=== PATIENT | male | born 1965 | race Hispanic/Latino ===

== ENCOUNTER 2018-05-01 21:35 | Emergency (ER) | payer SELFPAY ==
[2018-05-01 22:29] LABS: #Eosinphils 0.1 thou/uL (0.0-0.7); #Lymphocytes 2.5 thou/uL (1.20-3.40); #Monocytes 0.8 thou/uL (0.11-0.59); #Neutrophils 3.1 thou/uL (1.40-6.50); %Basophils 0.2 % (0.0-1.0); %Eosinophils 1.6 % (0.0-10.0); %Lymphocytes 38.1 % (21.0-51.0); Hemoglobin 14.8 g/dL (14.0-18.0); Mean Corpuscular HGB CONC 34.1 g/dL (32.0-36.0); Mean Corpuscular Volume 82.1 fL (78.0-98.0); Mean Platelet Volume 8.2 fL (7.4-10.4); Platelet Count 203 thou/uL (130-400); Red Blood Cell (RBC) Count 5.27 mill/uL (4.70-6.10); White Blood Cell (WBC) Count 6.4 thou/uL (4.8-10.8)
[2018-05-01 22:51] LABS: ALT (SGPT) 27 U/L (8-55); AST (SGOT) 22 U/L (5-34); Albumin 4.4 g/dL (3.5-5.0); Alkaline Phosphatase 138 U/L (40-150); Anion Gap 10 mmol/L (10-20); BUN (Urea Nitrogen) 13 mg/dL (8.4-25.7); Calc. Creatinine Clearance 0 mL/min (70-130); Calcium 9.4 mg/dL (7.8-10.44); Carbon Dioxide 26 mmol/L (22-29); Chloride 107 mmol/L (98-107); Estimated GFR-MDRD 70; Globulin 3.3 g/dL (2.4-3.5); Glucose 148 mg/dL (70-105); Potassium 3.9 mmol/L (3.5-5.1); Protein, Total 7.7 g/dL (6.0-8.3); Sodium 139 mmol/L (136-145)
--- NOTE | 2018-05-01 22:52 | RAD ---
FRONTAL RADIOGRAPH CHEST: 05/01/2018 HISTORY: Headache. Sweaty. COMPARISON: 10/09/2016 FINDINGS: The lungs are clear. The heart and mediastinal contour is unremarkable. IMPRESSION: No acute findings. POS: [facility]
[2018-05-01] MEDS ORDERED: Acetaminophen 500 MG TAB ONE (23:47)
[2018-05-02] MEDS ORDERED: Ketorolac Tromethamine 30 MG/ML VIAL ONE (00:40)
[2018-05-02 02:08] LABS: Bilirubin Negative (Negative); Blood, Urine Negative (Negative); Clarity CLEAR (Clear); Glucose, Urine (Dipstick) 250 mg/dL (Negative); Leukocyte Negative (Negative); Nitrite Negative (Negative); Protein, Urine (Dipstick) Negative (Neg-Trace); Specific Gravity, Urine 1.021 (1.002-1.036)
--- NOTE | 2018-05-02 07:38 | CT ---
CT HEAD NONCONTRAST: Date: 05/02/18 INDICATION: Headache. COMPARISON: 08/02/14. FINDINGS: There is no evidence of acute intracranial hemorrhage, mass effect, or midline shift. Redemonstration of white matter hypoattenuation involving each cerebral hemisphere, most consistent with advanced fo r age microvascular ischemic disease. There is a lacunar infarction involving the right cerebellar he misphere. There is also a lacunar infarction involving the anterior aspect of the head of the right c audate nucleus. There is scattered paranasal sinus mucosal thickening. IMPRESSION: 1. There is no acute intracranial hemorrhage or mass effect. 2. Lacunar infarctions superimposed upon advanced for age microvascular ischemic disease. Consider b rain MRI for further evaluation. POS: [facility]
== END 2018-05-02 03:16 | disposition home or self-care (01) ==
LOC: ERS 21:35
DX: R51 Headache (principal); R07.89 Other chest pain; E11.9 Type 2 diabetes mellitus without complications; I10 Essential (primary) hypertension; Z79.84 Long term (current) use of oral hypoglycemic drugs; Z79.899 Other long term (current) drug therapy
CPT/HCPCS: 36415; 70450; 71045; 80053; 81003; 84484; 85025; 93005; 96372; J1885

== ENCOUNTER 2018-05-29 16:38 | Emergency (ER) | payer SELFPAY ==
[2018-05-29] MEDS ORDERED: Acetaminophen 500 MG TAB ONE (16:55)
--- NOTE | 2018-05-29 17:13 | RAD ---
EXAM: CHEST ONE VIEW HISTORY: Weakness COMPARISON: 05/01/2018 FINDINGS: Cardiac silhouette is magnified by kyphotic positioning of the patient and shallow inspiration. Pulmo nary vasculature is within normal limits. The lungs are clear. The osseous structures are intact. IMPRESSION: No acute cardiopulmonary process.
[2018-05-29 17:15] LABS: Hemoglobin 15.7 g/dL (14.0-18.0); Mean Corpuscular HGB CONC 33.6 g/dL (32.0-36.0); Mean Corpuscular Hemoglobin 27.4 pg (27.0-31.0); Mean Corpuscular Volume 81.6 fL (78.0-98.0); Mean Platelet Volume 8.2 fL (7.4-10.4); Platelet Count 188 thou/uL (130-400); RBC Distribution Width 11.8 % (11.5-14.5); Red Blood Cell (RBC) Count 5.71 mill/uL (4.70-6.10); White Blood Cell (WBC) Count 6.6 thou/uL (4.8-10.8)
[2018-05-29 17:25] LABS: Bilirubin Negative (Negative); Blood, Urine Negative (Negative); Clarity CLEAR (Clear); Glucose, Urine (Dipstick) >=1000 mg/dL (Negative); Leukocyte Negative (Negative); Nitrite Negative (Negative); Protein, Urine (Dipstick) 30 mg/dL (Neg-Trace); Specific Gravity, Urine 1.026 (1.002-1.036); Urobilinogen 0.2 mg/dL (0.2-1.0)
[2018-05-29 17:28] LABS: Bacteria/HPF None Seen HPF (None Seen); Hyaline Casts/LPF 0-3 HYALINE CAST LPF (0-3 Hyaline); Pathc Cast-AUWi Flag 0.27 (0-2.49); RBC/HPF 0-3 HPF (0-3); Squamous Epithelial None Seen HPF (0-3); WBC/HPF None Seen HPF (0-3)
[2018-05-29 17:31] LABS: ALT (SGPT) 27 U/L (8-55); AST (SGOT) 21 U/L (5-34); Albumin 4.7 g/dL (3.5-5.0); Alkaline Phosphatase 166 U/L (40-150); Anion Gap 11 mmol/L (10-20); BUN (Urea Nitrogen) 13 mg/dL (8.4-25.7); Bilirubin, Total 1.5 mg/dL (0.2-1.2); Calc. Creatinine Clearance 0 mL/min (70-130); Calcium 9.8 mg/dL (7.8-10.44); Carbon Dioxide 29 mmol/L (22-29); Chloride 101 mmol/L (98-107); Estimated GFR-MDRD 58; Globulin 3.4 g/dL (2.4-3.5); Glucose 254 mg/dL (70-105); Potassium 4.2 mmol/L (3.5-5.1); Protein, Total 8.1 g/dL (6.0-8.3); Sodium 137 mmol/L (136-145)
[2018-05-29 17:43] LABS: Lymphocytes 24 % (21-51); MDiff Complete? YES; Monocytes 14 % (0-10); Neutrophil 57 % (42-75); Platelet Morphology Comment Appears Adequate; RBC Morphology Normal; Reactive Lymphocytes 5 % (0-10)
--- NOTE | 2018-05-29 18:40 | ULT ---
RIGHT UPPER QUADRANT ULTRASOUND: 05/29/18 HISTORY: Right upper quadrant abdominal pain for three days. FINDINGS: The pancreas is completely obscured by shadowing from bowel gas and unable to be evaluated. The left lobe of the liver is also obscured due to shadowing from bowel gas and unable to be evaluate d. Portions of the right hepatic lobe are also not well seen but where visualized demonstrate a gross ly normal sonographic appearance. The gallbladder demonstrates no gallbladder calculi. No gallbladder wall thickening or pericholecysti c fluid is seen. The visualized portions of the IVC and right kidney demonstrate a normal sonographic appearance. The right kidney measures 11.7 cm in length. The common duct measures 0.6 cm in diameter which is at the upper limits of normal. IMPRESSION: 1. No gallbladder calculi are seen. The common duct is at the upper limits of normal in caliber. 2. Obscuration of the pancreas and left hepatic lobe as well as limited evaluation of the right hepatic lobe, but no focal hepatic lesion is appreciated in the right hepatic lobe. POS: [facility]
== END 2018-05-29 19:37 | disposition home or self-care (01) ==
LOC: ERS 16:38
DX: B34.9 Viral infection, unspecified (principal); E11.9 Type 2 diabetes mellitus without complications; I10 Essential (primary) hypertension; Z79.899 Other long term (current) drug therapy
CPT/HCPCS: 36415; 71045; 76705; 80053; 81003; 81015; 83605; 85025; 87040; 87086; 87804; 93005; 96360

== ENCOUNTER 2018-09-26 22:50 | Emergency (ER) | payer OTHER ==
[2018-09-26] MEDS ORDERED: Clindamycin/D5W 900 mg/50 ml Premix Bag ONE (23:21)
[2018-09-26 23:23] LABS: #Eosinphils 0.1 thou/uL (0.0-0.7); #Lymphocytes 2.3 thou/uL (1.20-3.40); #Monocytes 0.8 thou/uL (0.11-0.59); #Neutrophils 3.6 thou/uL (1.40-6.50); %Basophils 0.2 % (0.0-1.0); %Eosinophils 1.4 % (0.0-10.0); %Lymphocytes 33.7 % (21.0-51.0); %Monocytes 12.2 % (0.0-10.0); %Neutrophils 52.5 % (42.0-75.0); Hemoglobin 13.6 g/dL (14.0-18.0); Mean Corpuscular HGB CONC 34.3 g/dL (32.0-36.0); Mean Corpuscular Hemoglobin 28.3 pg (27.0-31.0); Mean Corpuscular Volume 82.4 fL (78.0-98.0); Mean Platelet Volume 8.3 fL (7.4-10.4); Platelet Count 207 thou/uL (130-400); RBC Distribution Width 11.6 % (11.5-14.5); White Blood Cell (WBC) Count 6.9 thou/uL (4.8-10.8)
[2018-09-26 23:47] LABS: ALT (SGPT) 21 U/L (8-55); AST (SGOT) 19 U/L (5-34); Albumin 4.3 g/dL (3.5-5.0); Alkaline Phosphatase 113 U/L (40-150); Anion Gap 13 mmol/L (10-20); BUN (Urea Nitrogen) 21 mg/dL (8.4-25.7); Bilirubin, Total 0.6 mg/dL (0.2-1.2); Calc. Creatinine Clearance 0 mL/min (70-130); Calcium 9.4 mg/dL (7.8-10.44); Carbon Dioxide 25 mmol/L (22-29); Chloride 105 mmol/L (98-107); Estimated GFR-MDRD 63; Glucose 125 mg/dL (70-105); Potassium 3.8 mmol/L (3.5-5.1); Protein, Total 7.3 g/dL (6.0-8.3); Sodium 139 mmol/L (136-145)
== END 2018-09-27 00:25 | disposition home or self-care (01) ==
LOC: ERS 22:50
DX: S80.812A Abrasion, left lower leg, initial encounter (principal); L03.116 Cellulitis of left lower limb; E11.9 Type 2 diabetes mellitus without complications; I10 Essential (primary) hypertension; Z86.73 Personal history of transient ischemic attack (TIA), and cerebral infarction without residual deficits; Z79.84 Long term (current) use of oral hypoglycemic drugs; Z79.899 Other long term (current) drug therapy; W22.8XXA Striking against or struck by other objects, initial encounter
CPT/HCPCS: 80053; 83605; 85025; 87070; 87205; 96365; J3490

== ENCOUNTER 2018-11-14 22:50 | Observation (INO) | payer OTHER ==
[2018-11-15] MEDS ORDERED: Morphine 4 MG/ML VIAL ONE (00:36)
[2018-11-15 01:18] LABS: #Eosinphils 0.3 thou/uL (0.0-0.7); #Lymphocytes 2.3 thou/uL (1.20-3.40); #Monocytes 0.8 thou/uL (0.11-0.59); #Neutrophils 3.1 thou/uL (1.40-6.50); %Basophils 0.4 % (0.0-1.0); %Eosinophils 3.9 % (0.0-10.0); %Monocytes 12.1 % (0.0-10.0); %Neutrophils 48.5 % (42.0-75.0); Hemoglobin 14.3 g/dL (14.0-18.0); Mean Corpuscular HGB CONC 34.8 g/dL (32.0-36.0); Mean Corpuscular Hemoglobin 28.8 pg (27.0-31.0); Mean Corpuscular Volume 82.6 fL (78.0-98.0); Mean Platelet Volume 8.4 fL (7.4-10.4); Platelet Count 181 thou/uL (130-400); RBC Distribution Width 12.1 % (11.5-14.5); Red Blood Cell (RBC) Count 4.97 mill/uL (4.70-6.10); White Blood Cell (WBC) Count 6.4 thou/uL (4.8-10.8)
[2018-11-15 01:39] LABS: ALT (SGPT) 28 U/L (8-55); AST (SGOT) 23 U/L (5-34); Albumin 4.3 g/dL (3.5-5.0); Alkaline Phosphatase 125 U/L (40-110); Anion Gap 12 mmol/L (10-20); BUN (Urea Nitrogen) 19 mg/dL (8.4-25.7); Bilirubin, Total 0.5 mg/dL (0.2-1.2); Calc. Creatinine Clearance 0 mL/min (70-130); Calcium 9.4 mg/dL (7.8-10.44); Carbon Dioxide 26 mmol/L (22-29); Chloride 104 mmol/L (98-107); Estimated GFR-MDRD 72; Globulin 3.1 g/dL (2.4-3.5); Glucose 149 mg/dL (70-105); Lipase 62 U/L (8-78); Potassium 3.6 mmol/L (3.5-5.1); Protein, Total 7.4 g/dL (6.0-8.3); Sodium 138 mmol/L (136-145)
[2018-11-15] MEDS ORDERED: Aspirin Chewable 81 MG TAB ONE (02:06)
[2018-11-15 06:24] LABS: Troponin I 0.028 ng/mL (< 0.028)
[2018-11-15 08:03] LABS: Troponin I 0.037 ng/mL (< 0.028)
--- NOTE | 2018-11-15 08:49 | RAD ---
RADIOGRAPH CHEST 1 VIEW: HISTORY: A 53-year-old male with dyspnea. FINDINGS: There are no air space densities, pulmonary edema, pneumothorax, or cardiomegaly. The lateral costop hrenic angles are sharp. IMPRESSION: No acute cardiopulmonary findings. jn [] POS: [facility]
--- NOTE | 2018-11-15 08:54 | RAD ---
RADIOGRAPH LEFT LEG TIBIA AND FIBULA TWO VIEWS: 11/15/2018 HISTORY: A 53-year-old male with leg pain. FINDINGS: No evidence of fracture, periostitis, permeative lesion, osteolytic lesion or osteoblastic lesion inv olving the tibia or the fibula. No soft tissue calcifications or radiopaque foreign body. IMPRESSION: Negative. POS: [facility]
[2018-11-15] MEDS ORDERED: Ondansetron ODT 4 MG TAB PO PRN (10:00)
[2018-11-15] MEDS ORDERED: Acetaminophen 650 MG Suppository PR PRN (10:00)
[2018-11-15] MEDS ORDERED: Ondansetron PF 4 MG/2 ML Vial IVP PRN (10:00)
[2018-11-15] MEDS ORDERED: HumaLOG 300 UNITS/3 ML VIAL SC PRN (10:03)
[2018-11-15] MEDS ORDERED: Dextrose 50% Abboject 50 ML SYRINGE SLOW IVP PRN (10:03)
[2018-11-15] MEDS ORDERED: Dextrose 5% in Water 1,000 ML IV PRN (10:03)
[2018-11-15] MEDS ORDERED: Lisinopril 20 MG TAB PO SCH (10:15)
[2018-11-15] MEDS ORDERED: Lisinopril 10 MG TAB ONE ×2 (10:29→10:30)
[2018-11-15] MEDS ORDERED: Acetaminophen 325 MG/10.15 ML UDCUP ONE (10:31)
[2018-11-15] MEDS ORDERED: Acetaminophen 325 MG TAB ONE ×2 (10:31→10:32)
[2018-11-15] MEDS: Dextrose 5 %-0.45 % NaCl 1,000 ML IV SCH (11:21)
[2018-11-15] MEDS: Acetaminophen 325 MG TAB PO PRN ×2 (11:22→20:05)
--- NOTE | 2018-11-15 11:41 | ULT ---
VENOUS DOPPLER ULTRASOUND OF THE LEFT LOWER EXTREMITY: Date: 11/15/18 HISTORY: Left leg pain and edema. TECHNIQUE: Kebede scale ultrasound with color flow and spectral Doppler imaging of the deep venous system of the l eft lower extremity was performed. FINDINGS: There is good flow, compression, and augmentation noted in the left common femoral, femoral, deep fem oral, popliteal, posterior tibial, and greater saphenous veins. IMPRESSION: No evidence of deep venous thrombosis in the left lower extremity. POS: [facility]
[2018-11-15 11:58] LABS: Lactic Acid 0.8 mmol/L (0.5-2.2)
[2018-11-15 12:39] VITALS: BMI 42.0
[2018-11-15] MEDS ORDERED: Clindamycin 150 MG CAP PO SCH (18:30)
--- NOTE | 2018-11-15 19:39 | HP ---
TIME OF ASSESSMENT: 10:00 a.m. PRIMARY CARE PHYSICIAN: Dr. Patel. HISTORY OF PRESENT ILLNESS: Mr. Cai is a pleasant 53-year-old gentleman who presents with complaints of chest pain and shortness of breath as well as left lower extremity discomfort following an injury while at work approximately 2 weeks ago. The patient sustained blunt trauma and states he developed swelling. He was seen by his primary care physician who placed him on a course of antibiotics recently due to concern for possible cellulitis given the pain and redness. He states that the swelling and redness improved. However, he continues to have discomfort, which tends to be noticeable at night once he goes to bed. He takes [id number] analgesics to help ease the discomfort so that he can sleep. Yesterday, the patient states he began to develop left-sided chest pain and has also noted shortness of breath with exertion such as walking to his car. Denies having any cough. No associated fevers or chills. No dizziness. Denies having any other complaints. The chest pain he states started yesterday around 5:00 p.m., described as a pressure, which he rates 5/10 in severity and states lasted a few seconds to 4 minutes. Has been intermittent yesterday and he denies experiencing any further pain this morning. It does seem to be brought on with exertion along with the shortness of breath. He reports having a stress test over a year ago which was normal. It appears this was on November 22, 2015 per previous records available. At that time, there was no evidence of ischemia. He had a TID ratio of 1.2 and a slightly decreased ejection fraction of 49%. He did have an echocardiogram done at that time, which showed a normal left ventricular systolic function with mild mitral regurgitation and mild tricuspid regurgitation with an EF of 50% to 55%. In the emergency department, the patient has undergone laboratory studies including a D-dimer, which was negative. A chest x-ray was done showing no acute cardiopulmonary findings. An x-ray was obtained of the left lower extremity, which showed no abnormality. He has been referred for further workup regarding his chest pain and was given 324 mg of aspirin. An EKG was done in the ER, which showed normal sinus rhythm with no ST changes or T-wave abnormalities. Of note, the patient states he did mention the shortness of breath to his primary care physician who started him on albuterol inhaler. He denies any history of asthma or chronic obstructive pulmonary disease. He has never smoked and has not noted any improvement with the inhaler. PAST MEDICAL HISTORY: 1. Diabetes. 2. Hypertension. 3. Previous TIA with mild right-sided paresthesias. PAST SURGICAL HISTORY: Appendectomy. SOCIAL HISTORY: The patient lives alone. He denies any alcohol consumption, smoking, or illicit drug use. ALLERGIES: NO KNOWN DRUG ALLERGIES. CURRENT MEDICATIONS: 1. Metformin. 2. Glipizide. 3. Carvedilol. 4. Prozac. 5. Amlodipine. 6. Mupirocin. 7. Humulin 50/50. PHYSICAL EXAMINATION: GENERAL: The patient appears well developed, well nourished, is in no acute distress. VITAL SIGNS: Temperature 97.6, pulse 69, respirations 20, O2 saturation 99% on room air, and blood pressure 166/87. HEENT: Normocephalic and atraumatic. Pupils are equal, round, and reactive to light. Sclerae icterus. Oropharynx is clear. NECK: Supple without lymphadenopathy. LUNGS: Clear to auscultation bilaterally without wheezes, rales, or rhonchi. CARDIAC: Regular rate and rhythm without audible murmurs, rubs, or gallops. ABDOMEN: Soft, nontender, nondistended. Normoactive bowel sounds present. EXTREMITIES: Left lower extremity notable for dry skin with scaling, small area on the anterior lower juarez of slight erythema, slight warmth that is tender to palpation. No fluctuation or bone deformity. NEUROLOGIC: Alert and oriented x3. No new deficits. SKIN: As mentioned, warm and dry. LABORATORY STUDIES: White blood count 6.4, hemoglobin 14.3, hematocrit 41, platelets 181. D-dimer 0.33. Sodium 138, potassium 3.6, BUN 19, creatinine 1.07, GFR 72, glucose 149, calcium 9.4. LFTs unremarkable. Troponin 0.024, second troponin was 0.037, lipase 62. IMAGING STUDIES: As mentioned above in HPI. IMPRESSION AND PLAN: Mr. Cai is a very pleasant 53-year-old gentleman who is being referred for management of the following. 1. Chest pain with shortness of breath. We will continue to trend troponins. If no further increase or improved troponin, the patient will likely able to have a stress test done without having to be seen by Cardiology first. BNP will be added on as well as magnesium. The patient with slightly reduced EF on echo done in 2016. Repeat echo ordered. D-dimer was negative. However, given trauma to the left lower extremity with pain, though it is anteriorly rather than calf, we will obtain a venous Doppler. 2. Left lower extremity pain. There is some very slight erythema and very minimal warmth to touch. We will add procalcitonin and lactic acid to labs. White count is normal and he is afebrile. Was treated recently with antibiotics for possible skin infection. We will go ahead and start Omnicef. 3. Hypertension. We will resume home medications once verified and monitor blood pressure. 4. Diabetes mellitus. We will hold home medications and cover with insulin sliding scale. We will monitor glucose. 5. Gastrointestinal prophylaxis with famotidine. 6. Code status full. His surrogate decision maker is his sister, Marilyn Dash. The patient's case was discussed with Dr. Aguila, who agrees with plan of care as described above. Job ID: [id number] [facility]ITALSatish
[2018-11-15] MEDS: PROVENTIL INHALER 6.7 G (200 INHALATIONS) INH SCH (19:53)
[2018-11-15] MEDS: Cefdinir 300 MG CAP PO SCH (20:05)
[2018-11-15] MEDS: Carvedilol 6.25 MG TAB PO SCH (20:05)
[2018-11-15] MEDS: Famotidine 20 MG TAB PO SCH (20:05)
[2018-11-15] MEDS ORDERED: Famotidine/PF 20 mg/2ml Vial SLOW IVP SCH (21:00)
[2018-11-16] MEDS: Dextrose 5 %-0.45 % NaCl 1,000 ML IV SCH (04:23)
[2018-11-16 04:28] LABS: #Eosinphils 0.3 thou/uL (0.0-0.7); #Lymphocytes 1.6 thou/uL (1.20-3.40); #Monocytes 0.5 thou/uL (0.11-0.59); #Neutrophils 3.4 thou/uL (1.40-6.50); %Eosinophils 4.6 % (0.0-10.0); %Lymphocytes 28.1 % (21.0-51.0); %Monocytes 8.5 % (0.0-10.0); %Neutrophils 58.8 % (42.0-75.0); Hemoglobin 14.3 g/dL (14.0-18.0); Mean Corpuscular HGB CONC 34.2 g/dL (32.0-36.0); Mean Corpuscular Hemoglobin 28.3 pg (27.0-31.0); Mean Corpuscular Volume 82.6 fL (78.0-98.0); Platelet Count 179 thou/uL (130-400); Red Blood Cell (RBC) Count 5.05 mill/uL (4.70-6.10); White Blood Cell (WBC) Count 5.8 thou/uL (4.8-10.8)
[2018-11-16 04:47] LABS: Anion Gap 12 mmol/L (10-20); BUN (Urea Nitrogen) 12 mg/dL (8.4-25.7); Calc. Creatinine Clearance 133 mL/min (70-130); Calcium 8.7 mg/dL (7.8-10.44); Carbon Dioxide 24 mmol/L (22-29); Chloride 104 mmol/L (98-107); Estimated GFR-MDRD 83; Glucose 238 mg/dL (70-105); Potassium 3.9 mmol/L (3.5-5.1); Sodium 136 mmol/L (136-145)
[2018-11-16] MEDS: PROVENTIL INHALER 6.7 G (200 INHALATIONS) INH SCH ×3 (06:34→18:11)
[2018-11-16] MEDS ORDERED: FLU VACC QS2019-20(6MOS UP)/PF 60 MCG/0.5 ML SYRINGE IM ONE (09:00)
[2018-11-16] MEDS ORDERED: Lisinopril 20 MG TAB PO SCH (09:00)
[2018-11-16] MEDS ORDERED: Regadenoson 0.4 MG/5 ML SYRINGE ONE (09:45)
[2018-11-16] MEDS: Aspirin 81 mg Enteric Coated Tablet PO SCH (11:06)
[2018-11-16] MEDS: Cefdinir 300 MG CAP PO SCH (11:06)
[2018-11-16] MEDS: Amlodipine 5 MG TAB PO SCH (11:06)
[2018-11-16] MEDS: Carvedilol 6.25 MG TAB PO SCH ×2 (11:06→21:56)
[2018-11-16] MEDS: Famotidine 20 MG TAB PO SCH ×2 (11:06→21:55)
[2018-11-16] MEDS: HumaLOG 300 UNITS/3 ML VIAL SC PRN ×2 (11:07→18:20)
--- NOTE | 2018-11-16 11:38 | NM ---
CARDIAC SPECT: CLINICAL HISTORY: 53-year-old male with chest pain, hypertension, diabetes, TIA, and asthma. TECHNIQUE: A myocardial perfusion scan was performed using the single isotope two day protocol with 31 mCi techn etium-99m sestamibi injected intravenously for both stress and rest images. Pharmacologic stress with Lexiscan was monitored and interpreted by Dr. Sosa. FINDINGS: Homogeneous tracer distribution is seen in the myocardial segments on stress and rest images without fixed or reversible defects. GATED SPECT LVEF: 40%. WALL MOTION EXAM: Global hypokinesis. IMPRESSION: No evidence of reversible ischemia. POS: [facility]
--- NOTE | 2018-11-16 20:18 | PRG ---
DATE OF SERVICE: 11/16/2018 SUBJECTIVE: A 53-year-old male with diabetes mellitus, type 2; hypertension; hyperlipidemia, and recent left lower extremity cellulitis, on Augmentin, presented to the hospital with chest discomfort along with shortness of breath. He was found to have indeterminate troponins. He had some chest discomfort earlier during the stress test per the patient's report. He denies any diaphoresis or nausea. He states that he gets this kind of chest pain with shortness of breath on exertion while he is at work. REVIEW OF SYSTEMS: The patient denies any new focal deficit, nausea, or vomiting. OBJECTIVE: VITAL SIGNS: Temperature 97.7, pulse rate of 83, respirations of 14, blood pressure 159/92, O2 saturation 98% on room air. GENERAL: A 53-year-old male, in no apparent distress. LUNGS: Clear to auscultation bilaterally. No wheezing, rales, or rhonchi. HEART: S1 and S2 present. Regular rate and rhythm. No rubs or gallops. ABDOMEN: Soft and nontender. Bowel sounds present. EXTREMITIES: No calf tenderness. He has 1+ edema. There is residual left leg erythema from recent cellulitis. NEUROLOGIC: Grossly nonfocal. No new focal deficit. PSYCHIATRIC: Alert, awake, and oriented x3. Normal affect. LABORATORY DATA: Troponin 0.037. BUN of 19, creatinine 1.07. Hemoglobin 14.3. Procalcitonin was negative. BNP was 15. Telemetry monitoring by my review showed sinus rhythm. Echocardiogram showed ejection fraction of 45% to 50% with mild aortic regurgitation, mild mitral regurgitation. Left lower extremity was negative for DVT. IMPRESSION: 1. Chest discomfort with shortness of breath. His symptoms are suspicious for coronary artery disease. 2. Diabetes mellitus, type 2, on insulin. 3. Recent left lower extremity cellulitis, on Augmentin. 4. Hypertension. 5. Hyperlipidemia. 6. Mild intermittent asthma. 7. Morbid obesity with a body mass index of 42.1. 8. Elevated troponin secondary to demand ischemia/type 2 myocardial infarction. 9. Chronic kidney disease, stage 2. PLAN: The patient will be monitored in the observation unit. We will continue telemetry monitoring. We will discontinue IV fluid with dextrose. We will consult Cardiology. We will resume his home dose of Augmentin. Continue carvedilol. We will resume NPH. Continue mild sliding scale. We will keep him n.p.o. past midnight for possible intervention. Continue 81 mg of aspirin. Job ID: [id number]
--- NOTE | 2018-11-16 20:29 | CON ---
DATE OF CONSULTATION: HISTORY OF PRESENT ILLNESS: A 53-year-old gentleman presents for evaluation of chest discomfort. The patient has a long history of atypical chest pain. The patient states for the past 15 years, he has had left-sided chest discomfort. He has been admitted on multiple occasions and undergone stress tests which revealed no evidence of ischemia. The patient presents once again with left- sided chest discomfort. He states this always occurs after work. He states it lasts up to 2 minutes. It is not associated with exertion. The patient states that he notices it primarily when he is under stress after work. He denies having any present chest discomfort. The patient has several cardiac risk factors including diabetes mellitus and hypertension. PAST MEDICAL HISTORY: 1. Diabetes mellitus. 2. Hypertension. 3. History of TIA. PAST SURGICAL HISTORY: Appendectomy. SOCIAL HISTORY: Nonsmoker. MEDICATIONS: 1. Glipizide 20 daily. 2. Norvasc 5 daily. 3. Coreg 12.5 b.i.d. 4. Insulin. ALLERGIES: LISINOPRIL. FAMILY HISTORY: Positive family history of coronary artery disease. REVIEW OF SYSTEMS: Ten-point system otherwise unremarkable. PHYSICAL EXAMINATION: GENERAL: Obese gentleman, in no acute distress. VITAL SIGNS: Blood pressure is 159/92. NECK: No jugular venous distention. LUNGS: Clear to auscultation. HEART: Regular rate and rhythm. Normal S1 and S2. ABDOMEN: Nondistended. EXTREMITIES: Showed no edema. VASCULAR: Radial pulses 2+. LABORATORY RESULTS: Sodium 136, potassium 3.9, chloride 104, bicarbonate 24, BUN 12, creatinine 0.95, glucose is 83. White blood cell count 5.8, hemoglobin 14.3 , hematocrit 41.7, platelets 179. BNP was 15 and his troponin was 0.025. His EKG revealed normal sinus rhythm with left axis deviation. Echocardiogram; mild decreased left ventricular ejection fraction 45% to 50%. Cardiolite stress test revealed mild decreased left ventricular ejection fraction 40% with global hypokinesis. IMPRESSION: 1. Chest pain. 2. Mild cardiomyopathy. 3. Hypertension. 4. Diabetes mellitus. 5. Obesity. This gentleman presents with atypical chest pain, which has been present for many years. From a cardiac standpoint, his left ventricular function is mildly decreased. The patient needs to be on an ARB since he is allergic to lisinopril. Would recommend starting him on losartan. The patient needs close control of his blood pressure. Being diabetic, he should be on lipid lowering medication. We would recommend starting the patient on a moderate dose of statin therapy. We will follow this patient with you through his hospitalization. Job ID: [id number] LUIS ARMANDO
[2018-11-16] MEDS ORDERED: Atorvastatin Calcium 20 MG TAB PO SCH (21:00)
[2018-11-16] MEDS: Amoxicillin/Potassium Clav 875 MG TAB PO SCH (21:55)
[2018-11-16] MEDS: NPH, Human Insulin Isophane 300 UNIT/3 ML VIAL SC SCH (21:59)
[2018-11-16] MEDS ORDERED: Sodium Chloride 0.9% 1,000 ML IV SCH (23:55)
[2018-11-17] MEDS: Amlodipine 5 MG TAB PO SCH (05:51)
[2018-11-17] MEDS: Acetaminophen 325 MG TAB PO PRN (05:51)
[2018-11-17] MEDS: Carvedilol 6.25 MG TAB PO SCH ×3 (05:52→16:55)
[2018-11-17] MEDS: Famotidine 20 MG TAB PO SCH (05:52)
[2018-11-17] MEDS: Aspirin 81 mg Enteric Coated Tablet PO SCH (05:52)
[2018-11-17] MEDS: PROVENTIL INHALER 6.7 G (200 INHALATIONS) INH SCH ×2 (07:03→13:19)
[2018-11-17] MEDS ORDERED: Communication Order-Pharmacy FS SCH (07:45)
[2018-11-17] MEDS ORDERED: Lidocaine 1% (PF) 30 ML VIAL ONE (07:50)
[2018-11-17] MEDS ORDERED: Protamine Sulfate 50 MG/5 ML VIAL ONE (07:53)
[2018-11-17] MEDS ORDERED: Heparin 10,000 UNITS/1 ML VIAL ONE (07:53)
[2018-11-17] MEDS: NPH, Human Insulin Isophane 300 UNIT/3 ML VIAL SC SCH (07:58)
[2018-11-17] MEDS ORDERED: Fentanyl 100 MCG/2 ML VIAL ONE (08:26)
[2018-11-17] MEDS ORDERED: Midazolam HCl 2 mg/2 ml Vial ONE (08:26)
[2018-11-17 08:42] LABS: Cardiac Risk 5.4 (Less than 4.5)
[2018-11-17] MEDS ORDERED: Furosemide 20 MG TAB PO SCH (09:00)
[2018-11-17] MEDS ORDERED: Losartan 25 MG TAB PO SCH ×2 (09:00)
[2018-11-17] MEDS ORDERED: Acetaminophen/Codeine 30-300mg Tablet PO PRN ×2 (09:04)
[2018-11-17] MEDS ORDERED: Nitroglycerin 0.4 MG TAB (25 Tab Bottle) SL PRN (09:04)
[2018-11-17] MEDS ORDERED: Sodium Chloride 0.9% 200 ML IV PRN (09:04)
[2018-11-17] MEDS ORDERED: Sodium Chloride 0.9% 1,000 ML IV SCH (09:05)
[2018-11-17] MEDS: Amoxicillin/Potassium Clav 875 MG TAB PO SCH (09:38)
[2018-11-17] MEDS: HumaLOG 300 UNITS/3 ML VIAL SC PRN (12:48)
[2018-11-17] MEDS ORDERED: Iopamidol 370 76% 100 ML VIAL ONE (14:43)
[2018-11-17 15:23] VITALS: TEMP 98
[2018-11-17 16:56] VITALS: BP 154/88
[2018-11-17] MEDS ORDERED: Atorvastatin Calcium 40 MG TAB PO SCH (21:00)
[2018-11-18] MEDS ORDERED: Furosemide 40 MG TAB PO SCH (07:30)
--- NOTE | 2018-11-18 15:15 | DIS ---
DATE OF ADMISSION: 11/15/2018 DATE OF DISCHARGE: 11/17/2018 DISCHARGE DISPOSITION: Home. FOLLOWUP: 1. Follow up with primary care physician, Dr. Patel in 1 week. 2. Follow up with Dr. Rahat Aguilar as scheduled. ALLERGIES: PATIENT IS ALLERGIC TO LISINOPRIL. DISCHARGE MEDICATIONS: 1. Aspirin 81 mg daily. 2. Lipitor 40 mg at bedtime. 3. Carvedilol 12.5 mg 3 times daily. 4. Lasix 40 mg daily. 5. Losartan 100 mg daily. All other home medications were left unchanged. The patient was advised to continue his home dose of Augmentin as prescribed by his primary care physician. INPATIENT PIT HAND: Cardiology, Dr. Aguilar. The patient was seen and examined on the day of discharge. Denies any new complaints. No chest pain, shortness of breath, palpitations reported. DIAGNOSTIC TESTS: 1. Echocardiogram showed left ventricular ejection fraction of 45% to 50% with mild aortic regurgitation, mild mitral regurgitation, and mild increase in the left ventricular size. 2. Cardiolite stress test was negative for reversible ischemia. His ejection fraction was 40% with global hypokinesis. 3. Cardiac catheterization showed mild coronary artery disease with moderately impaired left ventricle function. He has been started on losartan along with Lasix. Carvedilol was added. The patient denies any chest discomfort at this time. He has been cleared by Cardiology for discharge. SIGNIFICANT LABORATORY DATA: Fasting lipid profile showed triglyceride 193, cholesterol 156, LDL 88, HDL of 29. Troponin of 0.037. BNP was 15. FINAL DIAGNOSES: 1. Chest discomfort. 2. Mild coronary artery disease. 3. Moderately impaired left ventricular dysfunction/mild chronic systolic heart failure. 4. Diabetes mellitus type 2. 5. Recent left lower extremity cellulitis, present on admission, on Augmentin. 6. Hypertension. 7. Hyperlipidemia. 8. Mild intermittent asthma. 9. Morbid obesity with a body mass index of 42.1. 10. Elevated troponin secondary to demand ischemia/type 2 myocardial infarction, present on admission. 11. Chronic kidney disease stage 2. PLAN: Plan of care was discussed with the patient in detail. He stated understanding. Job ID: [id number]
--- NOTE | 2018-11-20 00:12 | EKG ---
Test Reason : Blood Pressure : / mmHG Vent. Rate : 091 BPM Atrial Rate : 091 BPM P-R Int : 186 ms QRS Dur : 098 ms QT Int : 380 ms P-R-T Axes : 043 -37 066 degrees QTc Int : 467 ms Normal sinus rhythm Left axis deviation Abnormal ECG Confirmed by LAVINIA DHILLON ([id number]), assistant production editor YUNIOR JACKSON ([id number]) on 11/20/2018 12:12:15 AM Referred By: Confirmed By:LAVINIA DHILLON
== END 2018-11-17 17:35 | disposition home or self-care (01) ==
LOC: ERS 22:50 → ERHOLD 11-15 02:09 → 2SW 11-15 12:29
PROVIDERS: ADMIT Hospitalist; ATTEND Hospitalist
DX: R07.89 Other chest pain (principal); I25.10 Atherosclerotic heart disease of native coronary artery without angina pectoris; I13.0 Hypertensive heart and chronic kidney disease with heart failure and stage 1 through stage 4 chronic kidney disease, or unspecified chronic kidney disease; E11.9 Type 2 diabetes mellitus without complications; N18.2 Chronic kidney disease, stage 2 (mild); I50.22 Chronic systolic (congestive) heart failure; I21.A1 Myocardial infarction type 2; L03.116 Cellulitis of left lower limb; E78.5 Hyperlipidemia, unspecified; J45.909 Unspecified asthma, uncomplicated; I42.9 Cardiomyopathy, unspecified; E66.01 Morbid (severe) obesity due to excess calories; Z68.41 Body mass index [BMI] 40.0-44.9, adult; Z86.73 Personal history of transient ischemic attack (TIA), and cerebral infarction without residual deficits; Z88.8 Allergy status to other drugs, medicaments and biological substances; Z79.4 Long term (current) use of insulin; Z79.899 Other long term (current) drug therapy
CPT/HCPCS: 36415; 36416; 71045; 78452; 80048; 80053; 80061; 83605; 83690; 83735; 83880; 84145; 84484; 85025; 85347; 85379; 90471; 90686; 93005; 93017; 93306; 93458; 96361; 96374; 99152; A9500; C1769; G0008; G0378; J1644; J2001; J2250; J2270; J2720; J2785; J3010; Q9967

== ENCOUNTER 2019-01-22 22:10 | Emergency (ER) | payer OTHER ==
[2019-01-23] MEDS ORDERED: Ibuprofen 200 MG TAB ONE (00:49)
[2019-01-23] MEDS ORDERED: Acetaminophen 500 MG TAB ONE (00:49)
--- NOTE | 2019-01-23 07:53 | RAD ---
PORTABLE AP CHEST: Date: 01/23/19 HISTORY: Fever. COMPARISON: 11/15/18. FINDINGS: Cardiac silhouette and pulmonary vasculature are within normal limits. Lungs are clear. There has bee n no interval change when compared to the prior exam. IMPRESSION: No acute cardiopulmonary process. POS: [facility]
== END 2019-01-23 02:44 | disposition home or self-care (01) ==
LOC: ERS 22:10
DX: J20.9 Acute bronchitis, unspecified (principal); E11.9 Type 2 diabetes mellitus without complications; I10 Essential (primary) hypertension; Z86.73 Personal history of transient ischemic attack (TIA), and cerebral infarction without residual deficits; Z79.899 Other long term (current) drug therapy; Z79.4 Long term (current) use of insulin
CPT/HCPCS: 71045; 87804; 94640; J7620

== ENCOUNTER 2019-01-26 14:12 | Outpatient (CLI) | payer OTHER ==
--- NOTE | 2019-01-26 14:33 | RAD ---
XR Chest Pa Lat STANDARD HISTORY: Severe persistent reactive airway disease. Shortness of breath and cough, wheezing COMPARISON: 04/24/2013 FINDINGS: The heart size is normal. The lungs are well expanded without focal areas of consolidation, pneumothorax or pleural effusions. There are degenerative changes in the spine. IMPRESSION: No radiographic evidence of acute cardiopulmonary process.
--- NOTE | 2019-01-26 14:34 | RAD ---
XR Sinuses 3 View STANDARD HISTORY: Shortness of breath and cough COMPARISON: None. FINDINGS: No air-fluid levels are seen. Increased density in the maxillary sinuses is noted. Further evaluation with CT scan would be helpful.
== END 2019-01-26 14:13 | disposition home or self-care (01) ==
LOC: BICRAD 14:12
PROVIDERS: ATTEND Internal Medicine
DX: J45.50 Severe persistent asthma, uncomplicated (principal); R51 Headache
CPT/HCPCS: 70220; 71046

== ENCOUNTER 2019-01-29 15:15 | Emergency (ER) | payer OTHER ==
[~2019-01-29 15:15] MED LIST: Iopamidol-370 76% 500 ML 1 ML ONE
[2019-01-29 15:49] LABS: Bilirubin Negative (Negative); Blood, Urine Negative (Negative); Clarity Clear (Clear); Glucose, Urine (Dipstick) Greater than 1000 mg/dL (Negative); Leukocyte Negative Leu/uL (Negative); Nitrite Negative (Negative); Protein, Urine (Dipstick) Negative (Neg-Trace); Urobilinogen Normal mg/dL (Less than 2)
[2019-01-29] MEDS ORDERED: Ondansetron PF 4 MG/2 ML Vial ONE (15:52)
[2019-01-29] MEDS ORDERED: Morphine 4 MG/ML VIAL ONE (15:52)
[2019-01-29 16:21] LABS: #Eosinphils 0.1 thou/uL (0.0-0.7); #Lymphocytes 2.1 thou/uL (1.20-3.40); #Monocytes 0.8 thou/uL (0.11-0.59); #Neutrophils 5.1 thou/uL (1.40-6.50); %Basophils 0.6 % (0.0-1.0); %Eosinophils 0.8 % (0.0-10.0); %Lymphocytes 26.1 % (21.0-51.0); %Neutrophils 62.5 % (42.0-75.0); Hemoglobin 14.6 g/dL (14.0-18.0); Mean Corpuscular HGB CONC 34.7 g/dL (32.0-36.0); Mean Corpuscular Hemoglobin 28.2 pg (27.0-31.0); Mean Corpuscular Volume 81.3 fL (78.0-98.0); Mean Platelet Volume 8.4 fL (7.4-10.4); Platelet Count 252 thou/uL (130-400); RBC Distribution Width 11.3 % (11.5-14.5); Red Blood Cell (RBC) Count 5.17 mill/uL (4.70-6.10); White Blood Cell (WBC) Count 8.2 thou/uL (4.8-10.8)
--- NOTE | 2019-01-29 16:38 | RAD ---
PORTABLE CHEST: Comparison: 01-23-19 History: Right sided chest pain. FINDINGS: Heart size is borderline for portable technique. Mediastinal structures are unremarkable. The lungs a re clear of any infiltrative process. No significant bony findings. IMPRESSION: Borderline heart size. No active intrathoracic disease. POS: [facility]
[2019-01-29 16:39] LABS: ALT (SGPT) 22 U/L (8-55); AST (SGOT) 16 U/L (5-34); Albumin 4.2 g/dL (3.5-5.0); Alkaline Phosphatase 109 U/L (40-110); Anion Gap 14 mmol/L (10-20); BUN (Urea Nitrogen) 15 mg/dL (8.4-25.7); Bilirubin, Total 0.7 mg/dL (0.2-1.2); Calc. Creatinine Clearance 0 mL/min (70-130); Calcium 9.5 mg/dL (7.8-10.44); Carbon Dioxide 25 mmol/L (22-29); Chloride 103 mmol/L (98-107); Estimated GFR-MDRD 54; Globulin 3.6 g/dL (2.4-3.5); Glucose 280 mg/dL (70-105); Lipase 47 U/L (8-78); Potassium 4.2 mmol/L (3.5-5.1); Protein, Total 7.8 g/dL (6.0-8.3); Sodium 138 mmol/L (136-145)
--- NOTE | 2019-01-29 16:46 | ULT ---
GALLBLADDER ULTRASOUND: History: Right upper quadrant pain. FINDINGS: Patient was not NPO and there is moderate bowel gas which does obscure some detail. The gallbladder d oes appear normal. The common duct is in the 5 mm range. Liver measures 17 cm in length. No focal abn ormalities are noted. Right kidney is normal in size and not obstructed. Hypoechoic area in the upper pole region of the right kidney does not have definite cyst features. Review of a previous ultrasoun d examination of 05-29-18 shows that this area actually appears to represent just prominent medullary pyramid rather than a true cyst. It is a stable finding as compared to the prior exam. The pancreas i s obscured. IMPRESSION: No evidence of gallstones. POS: [facility]
--- NOTE | 2019-01-29 17:42 | CT ---
CT OF ABDOMEN AND PELVIS PERFORMED WITH INTRAVENOUS CONTRAST ENHANCEMENT: History: Right sided abdominal pain. FINDINGS: The lung bases show some atelectatic change. The liver, spleen, pancreas, and gallbladder regions juanis ear unremarkable. The stomach is distended, presumably the patient has recently eaten. Right and left adrenal glands and right and left kidneys are normal in size. There are some mild aort ocaval and left periaortic adenopathy all of these nodes are subcentimeter in size, just more numerou s than typically seen. There are also small mesenteric lymph nodes noted. No bowel wall abnormalities are seen. CT OF PELVIS PERFORMED WITH CONTRAST ENHANCEMENT: No evidence of any significant adenopathy, mass, or free fluid. The appendix is not definitively iden tified but no inflammatory change. No free fluid in the pelvis. Bladder wall shows some questionable slight thickening which could indicate an element of bladder outlet obstruction. Prostate does not ap pear significantly enlarged. IMPRESSION: Stomach is distended with secretions. Presumably this is on the basis of patient having recently eate n, another possibility that this represents gastroparesis. No other findings noted. POS: [facility]
[2019-01-29] MEDS ORDERED: Metoclopramide HCl 10 MG TAB ONE (18:08)
== END 2019-01-29 18:25 | disposition home or self-care (01) ==
LOC: ERS 15:15
DX: E11.65 Type 2 diabetes mellitus with hyperglycemia (principal); R10.10 Upper abdominal pain, unspecified; I10 Essential (primary) hypertension; Z86.73 Personal history of transient ischemic attack (TIA), and cerebral infarction without residual deficits; Z79.899 Other long term (current) drug therapy
CPT/HCPCS: 71045; 74177; 76705; 80053; 81003; 83690; 85025; 96361; 96372; 96374; 96375; J0500; J2270; J2405; Q9967

== ENCOUNTER 2019-10-26 05:34 | Emergency (ER) | payer BC, SELFPAY ==
[2019-10-26 06:38] LABS: ALT (SGPT) 17 U/L (8-55); AST (SGOT) 18 U/L (5-34); Albumin 4.1 g/dL (3.5-5.0); Alkaline Phosphatase 117 U/L (40-110); Anion Gap 16 mmol/L (10-20); BUN (Urea Nitrogen) 14 mg/dL (8.4-25.7); Bilirubin, Total 1.4 mg/dL (0.2-1.2); CK (CPK) 130 U/L (30-200); Calc. Creatinine Clearance 0 mL/min (70-130); Calcium 8.9 mg/dL (7.8-10.44); Carbon Dioxide 21 mmol/L (22-29); Chloride 102 mmol/L (98-107); Estimated GFR-MDRD 62; Glucose 422 mg/dL (70-105); Potassium 4.2 mmol/L (3.5-5.1); Protein, Total 7.1 g/dL (6.0-8.3); Sodium 135 mmol/L (136-145)
[2019-10-26 06:47] LABS: #Eosinphils 0.1 thou/uL (0.0-0.7); #Lymphocytes 1.1 thou/uL (1.20-3.40); #Monocytes 0.5 thou/uL (0.11-0.59); #Neutrophils 5.5 thou/uL (1.40-6.50); %Basophils 0.4 % (0.0-1.0); %Eosinophils 0.7 % (0.0-10.0); %Lymphocytes 15.6 % (21.0-51.0); %Monocytes 7.1 % (0.0-10.0); %Neutrophils 76.2 % (42.0-75.0); Hemoglobin 15.6 g/dL (14.0-18.0); Mean Corpuscular HGB CONC 34.4 g/dL (32.0-36.0); Mean Corpuscular Hemoglobin 28.4 pg (27.0-31.0); Mean Corpuscular Volume 82.6 fL (78.0-98.0); Mean Platelet Volume 8.7 fL (7.4-10.4); Platelet Count 188 thou/uL (130-400); RBC Distribution Width 11.5 % (11.5-14.5); Red Blood Cell (RBC) Count 5.48 mill/uL (4.70-6.10); White Blood Cell (WBC) Count 7.2 thou/uL (4.8-10.8)
--- NOTE | 2019-10-26 07:18 | CT ---
CT OF THE BRAIN WITHOUT CONTRAST: Date: 10/26/2019 HISTORY: Weakness in all extremities. COMPARISON: 05/02/2018. TECHNIQUE: Multiple contiguous axial images were obtained in a CT of the brain without contrast. FINDINGS: There are scattered hypodensities in the subcortical and periventricular white matter, likely seconda ry to small vessel ischemic disease. No large confluent infarction is seen. There is no evidence of h ydrocephalus, intracranial hemorrhage, or extra-axial fluid collection. The calvarium and overlying soft tissues are unremarkable. The visualized paranasal sinuses and masto id air cells are well aerated. IMPRESSION: No evidence of acute intracranial abnormality. POS: [facility]
[2019-10-26 07:54] LABS: Bilirubin Negative (Negative); Blood, Urine Negative (Negative); Clarity Clear (Clear); Glucose, Urine (Dipstick) Greater than 1000 mg/dL (Negative); Ketone, Urine 20 mg/dL (Negative); Leukocyte Negative Leu/uL (Negative); Nitrite Negative (Negative); Protein, Urine (Dipstick) Negative (Neg-Trace); Specific Gravity, Urine 1.036 (1.002-1.036); Urobilinogen Normal mg/dL (Less than 2)
[2019-10-26] MEDS ORDERED: hydrALAZINE 20 MG/ML VIAL ONE (07:59)
[2019-10-26 10:36] LABS: Anion Gap 15 mmol/L (10-20); BUN (Urea Nitrogen) 11 mg/dL (8.4-25.7); Calc. Creatinine Clearance 0 mL/min (70-130); Calcium 8.8 mg/dL (7.8-10.44); Carbon Dioxide 22 mmol/L (22-29); Chloride 105 mmol/L (98-107); Estimated GFR-MDRD 81; Glucose 303 mg/dL (70-105); Sodium 138 mmol/L (136-145)
[2019-10-26 10:54] LABS: Base Excess-Venous 0.1 mmol/L (-2.0 to 3.0); Bicarbonate (HCO3v) 24.7 mmol/L (22.0-28.0); Calcium, Ionized 1.04 mmol/L (See Comments:); Chloride 107 mmol/L (98-107); Sodium 142 mmol/L (138-145); T. Carbon Dioxide 25.9 mmol/L (22.0-28.0); vO2 Saturation-calc 89.7 % (60.0-85.0)
--- NOTE | 2019-10-28 14:08 | EKG ---
Test Reason : Blood Pressure : / mmHG Vent. Rate : 112 BPM Atrial Rate : 112 BPM P-R Int : 180 ms QRS Dur : 104 ms QT Int : 346 ms P-R-T Axes : 039 -39 051 degrees QTc Int : 472 ms Sinus tachycardia with Premature atrial complexes Left axis deviation Minimal voltage criteria for LVH, may be normal variant Abnormal ECG Confirmed by MALVIN BARCENAS ([id number]), development editor DAMARIS TOMLIN ([id number]) on 10/28/2019 2:08:00 PM Referred By: Confirmed By:MALVIN BARCENAS
== END 2019-10-26 13:07 | disposition home or self-care (01) ==
LOC: ERS 05:34
DX: E11.65 Type 2 diabetes mellitus with hyperglycemia (principal); I10 Essential (primary) hypertension; Z79.899 Other long term (current) drug therapy; Z79.84 Long term (current) use of oral hypoglycemic drugs
CPT/HCPCS: 36415; 70450; 80053; 81003; 82010; 82330; 82550; 82803; 84484; 85025; 93005; 96361; 96374; J0360

== ENCOUNTER 2019-12-02 13:28 | Emergency (ER) | payer SELFPAY | END 2019-12-02 14:44 | disposition home or self-care (01) | LOC: ERS 13:28 | DX: S02.5XXA Fracture of tooth (traumatic), initial encounter for closed fracture (principal); I10 Essential (primary) hypertension; E11.9 Type 2 diabetes mellitus without complications; Z86.73 Personal history of transient ischemic attack (TIA), and cerebral infarction without residual deficits; Z79.4 Long term (current) use of insulin; Z79.899 Other long term (current) drug therapy; X58.XXXA Exposure to other specified factors, initial encounter | CPT/HCPCS: 99282 ==

== ENCOUNTER 2019-12-29 12:06 | Emergency (ER) | payer SELFPAY ==
[2019-12-29 12:33] LABS: #Eosinphils 0.1 thou/uL (0.0-0.7); #Monocytes 0.6 thou/uL (0.11-0.59); #Neutrophils 6.6 thou/uL (1.40-6.50); %Basophils 0.3 % (0.0-1.0); %Eosinophils 0.5 % (0.0-10.0); %Lymphocytes 21.9 % (21.0-51.0); %Neutrophils 71.2 % (42.0-75.0); Mean Corpuscular Hemoglobin 28.4 pg (27.0-31.0); Mean Corpuscular Volume 81.2 fL (78.0-98.0); Mean Platelet Volume 8.9 fL (7.4-10.4); Platelet Count 175 thou/uL (130-400); RBC Distribution Width 11.4 % (11.5-14.5); Red Blood Cell (RBC) Count 5.62 mill/uL (4.70-6.10); White Blood Cell (WBC) Count 9.2 thou/uL (4.8-10.8)
[2019-12-29 12:37] LABS: Base Excess-Venous 1.4 mmol/L (-2.0 to 3.0); Bicarbonate (HCO3v) 25.9 mmol/L (22.0-28.0); CO2 Tension (PvCO2) 39.8 mmHg (40.0-50.0); Calcium, Ionized 1.03 mmol/L (1.15-1.33); Chloride 100 mmol/L (98-107); Hemoglobin - Calc 16.5 g/dL (14.0-18.0); Potassium 3.9 mmol/L (3.5-5.1); Sodium 135 mmol/L (138-145); T. Carbon Dioxide 27.1 mmol/L (22.0-28.0); vO2 Saturation-calc 97.4 % (60.0-85.0)
[2019-12-29 13:01] LABS: Magnesium 1.7 mg/dL (1.6-2.6); Phosphorus 2.9 mg/dL (2.3-4.7)
[2019-12-29 13:02] LABS: ALT (SGPT) 15 U/L (8-55); AST (SGOT) 15 U/L (5-34); Albumin 4.3 g/dL (3.5-5.0); Alkaline Phosphatase 121 U/L (40-110); Anion Gap 18 mmol/L (10-20); BUN (Urea Nitrogen) 17 mg/dL (8.4-25.7); Calc. Creatinine Clearance 0 mL/min (70-130); Calcium 9.3 mg/dL (7.8-10.44); Carbon Dioxide 21 mmol/L (22-29); Chloride 99 mmol/L (98-107); Estimated GFR-MDRD 54; Globulin 3.1 g/dL (2.4-3.5); Glucose 456 mg/dL (70-105); Protein, Total 7.4 g/dL (6.0-8.3); Sodium 134 mmol/L (136-145)
[2019-12-29 14:10] LABS: Bilirubin Negative (Negative); Blood, Urine Negative (Negative); Clarity Clear (Clear); Glucose, Urine (Dipstick) Greater than 1000 mg/dL (Negative); Ketone, Urine 10 mg/dL (Negative); Leukocyte Negative Leu/uL (Negative); Nitrite Negative (Negative); Protein, Urine (Dipstick) Negative (Neg-Trace); Specific Gravity, Urine 1.025 (1.002-1.036); Urobilinogen Normal mg/dL (Less than 2)
[2019-12-29] MEDS ORDERED: Amlodipine 5 MG TAB ONE (14:17)
[2019-12-29] MEDS ORDERED: Insulin Regular 300 UNITS/3 ML VIAL ONE (14:17)
[2019-12-29 14:22] LABS: Amphetamine Not Detected (NotDetected); Barbiturates Screen Not Detected (NotDetected); Benzodiazepine Screen Not Detected (NotDetected); Cocaine Metabolite Screen Not Detected (NotDetected); Medtox Control Line Valid? VALID (VALID); Medtox Reader # READER 1; Methadone Not Detected (NotDetected); Methamphetamine Not Detected (NotDetected); Opiate Screen Not Detected (NotDetected); Oxycodone Screen Not Detected (NotDetected); Phencyclidine (PCP) Not Detected (NotDetected); THC/Cannabinoid Screen Not Detected (NotDetected); Tricyclic Screen Not Detected (NotDetected)
[2019-12-29] MEDS ORDERED: Carvedilol 25 MG TAB PO SCH (14:30)
[2019-12-29 15:19] LABS: Acetaminophen Less than 6.0 mcg/mL (10.0-30.0); Alcohol Less than 10 mg/dL (Less than 10); Salicylate Less than 8.0 mg/dL (15.0-30.0)
== END 2019-12-30 02:39 ==
LOC: ERS 12:06
DX: E11.65 Type 2 diabetes mellitus with hyperglycemia (principal); R45.851 Suicidal ideations; I10 Essential (primary) hypertension; Z86.73 Personal history of transient ischemic attack (TIA), and cerebral infarction without residual deficits
CPT/HCPCS: 36415; 36416; 80053; 80306; 80307; 81003; 82010; 82330; 82803; 83735; 84100; 85025; 93005; J1815

== ENCOUNTER 2020-01-16 17:32 | Observation (INO) | payer SELFPAY ==
[2020-01-16 18:25] LABS: #Eosinphils 0.1 thou/uL (0.0-0.7); #Lymphocytes 2.4 thou/uL (1.20-3.40); #Monocytes 0.5 thou/uL (0.11-0.59); #Neutrophils 3.7 thou/uL (1.40-6.50); %Basophils 0.4 % (0.0-1.0); %Eosinophils 1.2 % (0.0-10.0); %Monocytes 6.9 % (0.0-10.0); %Neutrophils 55.5 % (42.0-75.0); Hemoglobin 14.1 g/dL (14.0-18.0); Mean Corpuscular HGB CONC 33.3 g/dL (32.0-36.0); Mean Corpuscular Hemoglobin 27.6 pg (27.0-31.0); Mean Corpuscular Volume 82.8 fL (78.0-98.0); Mean Platelet Volume 8.3 fL (7.4-10.4); Platelet Count 188 thou/uL (130-400); RBC Distribution Width 11.6 % (11.5-14.5); Red Blood Cell (RBC) Count 5.11 mill/uL (4.70-6.10); White Blood Cell (WBC) Count 6.7 thou/uL (4.8-10.8)
--- NOTE | 2020-01-16 18:42 | CT ---
CT Brain WO Con History: Hypertension. Right-sided weakness. Comparison: CT brain October 2019 Findings: Moderate chronic microangiopathic changes. No acute hemorrhage or territorial infarction. O ld lacunar infarcts of the thalami. Hypodensity of the nisreen is similar. Paranasal sinuses and mastoids are clear. Calvarium is intact. Impression: Chronic findings. No acute intracranial abnormality.
[2020-01-16 18:46] LABS: ALT (SGPT) 19 U/L (8-55); AST (SGOT) 13 U/L (5-34); Albumin 4.1 g/dL (3.5-5.0); Alkaline Phosphatase 110 U/L (40-110); Anion Gap 15 mmol/L (10-20); BUN (Urea Nitrogen) 14 mg/dL (8.4-25.7); Bilirubin, Total 0.9 mg/dL (0.2-1.2); Calc. Creatinine Clearance 0 mL/min (70-130); Carbon Dioxide 23 mmol/L (22-29); Chloride 102 mmol/L (98-107); Globulin 2.5 g/dL (2.4-3.5); Glucose 532 mg/dL (70-105); Potassium 4.3 mmol/L (3.5-5.1); Protein, Total 6.6 g/dL (6.0-8.3); Sodium 136 mmol/L (136-145)
[2020-01-16] MEDS ORDERED: Labetalol HCl 100 MG/20 ML VIAL ONE (18:55)
[2020-01-16] MEDS ORDERED: Dextrose 5% in Water 1,000 ML IV PRN (19:29)
[2020-01-16] MEDS ORDERED: Dextrose 50% Abboject 50 ML SYRINGE SLOW IVP PRN (19:29)
[2020-01-16] MEDS ORDERED: Aspirin 325 MG TAB PO SCH (19:30)
[2020-01-16] MEDS ORDERED: Aspirin 325 MG TAB ONE (19:31)
[2020-01-16] MEDS ORDERED: Atorvastatin Calcium 40 MG TAB PO SCH (21:00)
[2020-01-16 21:14] VITALS: BMI 33.4
[2020-01-16] MEDS: Sodium Chloride 0.9% 1,000 ML IV SCH (21:21)
[2020-01-16 21:42] LABS: Troponin I 0.016 ng/mL (< 0.028)
[2020-01-16] MEDS ORDERED: HumaLOG 300 UNITS/3 ML VIAL SC PRN (22:00)
--- NOTE | 2020-01-17 01:11 | HP ---
CHIEF COMPLAINT: Stroke-like symptoms. HISTORY OF PRESENT ILLNESS: Mr. Trell Lund is a 54-year-old male with past medical history of CVA with mild residual right-sided deficits, presents to the emergency room with stroke-like symptoms. Around 4:30 p.m., he developed slurred speech, facial drooping, drooling while on the phone. The patient also endorses numbness, tingling, and weakness of the right arm and leg as well. He did not have a ride, drove himself to the ER for these symptoms. Upon arrival to the emergency room, his symptoms improved. He no longer had slurring of speech, facial drooping, or drooling. There is some numbness of the right upper extremity that has been improving also. Workup in the emergency room, the patient was found to be hypertensive with a blood pressure of 170/115, lab work showed hyperglycemia with a glucose of 532. CT of the brain, no acute finding. In the emergency room, the patient was given aspirin, also was given 20 mg IV labetalol. The patient is being admitted to the hospital for further management. PAST MEDICAL HISTORY: 1. Diabetes mellitus, type 2. 2. Hypertension. 3. CVA. 4. Hyperlipidemia. PAST SURGICAL HISTORY: 1. Appendectomy. 2. Cap in heart? PAST PSYCHIATRIC HISTORY: None. SOCIAL HISTORY: Lives at home. Denies alcohol drinking. Denies smoking. FAMILY HISTORY: Reviewed and noncontributory. HOME MEDICATIONS: See home medication reconciliation form for updated medications. ALLERGIES: ALLERGIC TO LISINOPRIL. REVIEW OF SYSTEMS: Review of 14 systems negative except what is mentioned in history of present illness. PHYSICAL EXAMINATION: GENERAL: The patient is awake, alert, not in acute distress. VITAL SIGNS: Blood pressure latest is 160/100, pulse is 87, respiratory rate is 21, temperature is 98.5, and oxygen saturation 95% on room air. HEAD AND NECK: Normocephalic, atraumatic. Neck is supple. No JVD. CHEST: Fair bilateral air entry. HEART: S1 and S2, regular. ABDOMEN: Soft, nontender. Bowel sounds present. NEUROLOGIC: Awake, alert, oriented. There is mild weakness of the right upper extremity and right lower extremity compared to the left, which is about his baseline. Mild slurring of speech. IMAGING DATA: CT of the brain as mentioned above in history of present illness. LABORATORY DATA: As mentioned above in history of present illness. ASSESSMENT: 1. Cerebrovascular accident/? transient ischemic attack. 2. Diabetes mellitus with hyperglycemia. 3. Hypertensive urgency. 4. Hyperlipidemia. 5. History of cerebrovascular accident. PLAN: 1. Admit. 2. Telemonitor. 3. Frequent neuro checks. 4. Aspirin. 5. MRI of the brain. 6. PT/OT eval. 7. Monitor and control blood pressure, permissive hypertension. 8. Reconcile home medications. 9. DVT prophylaxis. 10. Expected length of stay, 2 midnights. Job ID: [id number]
[2020-01-17 01:50] LABS: Troponin I 0.023 ng/mL (< 0.028)
[2020-01-17 05:26] LABS: Cardiac Risk 4.5 (Less than 4.5)
[2020-01-17] MEDS: HumaLOG 300 UNITS/3 ML VIAL SC PRN ×3 (06:12→17:43)
[2020-01-17 07:26] LABS: SARS-CoV-2 MS2 Positive; SARS-CoV-2 N Gene Negative; SARS-CoV-2 S Gene Negative; SARS-CoV-2 by NAA Not Detected (NotDetected); SARS-CoV-2 orf1ab Negative
[2020-01-17] MEDS ORDERED: Enoxaparin Sodium 40 MG/0.4 ML SYRINGE SC SCH (09:00)
[2020-01-17] MEDS ORDERED: Aspirin 325 mg Enteric Coated Tablet PO SCH (09:00)
--- NOTE | 2020-01-17 12:21 | CON ---
NEUROLOGY CONSULTATION DATE OF CONSULTATION: 01/17/2020 REASON FOR CONSULTATION: Stroke-like symptoms. HISTORY OF PRESENT ILLNESS: Mr. Trell Lund is a 54-year-old male with medical history significant for prior CVA with mild residual right-sided deficit, presented to the emergency room with stroke-like symptoms. According to the patient, around 4:30 p.m., he developed slurred speech, facial droop and drooling while he was talking on the phone. The patient also had increased numbness and paresthesias and weakness of the right upper and lower extremity, which is different from his residual stroke symptoms. He did not have a ride so he drove himself to the emergency room and on arrival, the symptoms improved and he has no longer had slurred speech, facial droop and numbness of the right upper extremity and lower extremity also improved and he is back to the baseline. In the emergency room, he was found to be hypertensive with blood pressure of 170/115 and lab work showed hyperglycemia with a glucose of 532. Head CT did not reveal acute intracranial pathology. In the emergency room, he was given aspirin and also 20 mg IV of labetalol and admitted for further management. The patient denies nausea, vomiting, headache, chest pain, abdominal pain, double vision, loss of vision, vertigo, dizziness, or seizure-like activity, recent illness or recent exposure to COVID. REVIEW OF SYSTEMS: All systems reviewed and were negative except the pertinent positives and negatives mentioned in the HPI. PAST MEDICAL HISTORY: Diabetes mellitus type 2, hypertension, prior CVA with right-sided residual deficits, hyperlipidemia. PAST SURGICAL HISTORY: Appendectomy. SOCIAL HISTORY: The patient lives at home. Denies smoking, alcohol, illegal drug use. FAMILY HISTORY: No significant history of stroke. ALLERGIES: LISINOPRIL. Vital Signs & Weight: Vital Signs (12 hours) Temp Pulse Resp BP Pulse Ox 01/17/20 11:42 97.9 F 83 16 169/106 H 99 01/17/20 07:45 98.1 F 77 16 161/100 H 96 01/17/20 03:57 97.6 F 83 18 155/96 H 95 Weight Weight 182 lb 12.8 oz I&O: 01/16/20 01/17/20 01/18/20 06:59 06:59 06:59 Intake Total 665 360 Output Total 825 Balance -160 360 Additional Labs: Accuchecks 01/17/20 01/17/20 01/16/20 11:30 05:42 21:03 POC Glucose 207 H 265 H 342 H Radiology Reviewed by me: Yes EKG Reviewed by me: Yes Active Medications Generic Name Dose Route Start Last Admin Trade Name Freq PRN Reason Stop Dose Admin Aspirin 325 mg 01/17/20 09:00 01/17/20 08:46 Aspirin 325 Mg Enteric Coated Tablet PO 325 mg DAILY JOSE Administration Atorvastatin Calcium 40 mg 01/16/20 21:00 01/16/20 21:21 Atorvastatin Calcium 40 Mg Tab PO 40 mg HS JOSE Administration Enoxaparin Sodium 40 mg 01/17/20 09:00 01/17/20 08:46 Enoxaparin Sodium 40 Mg/0.4 Ml Syringe SC 40 mg 0900 JOSE Administration Sodium Chloride 1,000 mls @ 75 mls/hr 01/16/20 19:30 01/16/20 21:21 Normal Saline 0.9% IV 1,000 mls .[id number] JOSE Administration Insulin Human Lispro 0 units 01/16/20 19:29 01/17/20 12:24 Humalog 300 Units/3 Ml Vial SC 4 unit .MODERATE SLIDING SC PRN Administration Moderate Correctional Scale Insulin Human Lispro 0 units 01/16/20 22:00 01/16/20 22:06 Humalog 300 Units/3 Ml Vial SC 4 unit .BEDTIME SLIDING SC PRN Administration BEDTIME SLIDING SCALE Protocol PHYSICAL EXAMINATION: VITAL SIGNS: Blood pressure 160/100, pulse 80, respiratory rate 18. General Appearance: NAD Eye: PERRL ENT: normocephalic atraumatic Neck: supple Heart: RRR Respiratory: CTAB Gastrointestinal: soft Extremities: no cyanosis NEUROLOGICAL: Mental status, the patient is alert and oriented to person, place, and time. Speech is clear. Motor muscle tone and bulk are normal. Strength 5/5 in the left upper and lower extremity, 4+/5 in the right upper and lower extremity. Sensory intact. Cerebellar, finger-nose testing intact. Gait deferred due to patient's safety reason. Cranial nerves 2 through 12 intact. DATA REVIEWED: I reviewed the CT scan which was negative for acute intracranial pathology. ASSESSMENT AND PLAN: Mr. Mk Cai is a 54-year-old male with history significant for prior CVA with residual right-sided deficits, diabetes mellitus, and hypertension, presented with hyperglycemia and hypertensive emergency and stroke-like symptoms which are now resolved most likely TIA; The patient takes aspirin 81 mg daily, so consider increasing it to the full dose of aspirin. Continue statin for secondary stroke prevention. Neuro checks every 4 hours. Telemetry to rule out arrhythmias. 2D echo to evaluate for left ventricular ejection fraction and carotid Dopplers to rule out hemodynamically significant stenosis. Continue home medications. Permissive control of blood pressure at this time. Strict control of blood glucose. Check hemoglobin A1c, fasting lipid panel, and TSH, PT/OT/speech. Continue home medication. Continue medical management per primary team. DVT prophylaxis. We will continue to follow. Thank you for the consult. Job ID: [id number] LUIS ARMANDO
--- NOTE | 2020-01-17 13:22 | ULT ---
CAROTID ULTRASOUND: DATE: 01/17/2020 COMPARISON: CT brain 01/16/2020. Carotid ultrasound 12/20/2009. HISTORY: Right-sided weakness and slurred speech. TECHNIQUE: Multiplanar Kebede scale and color Doppler images were obtained in a carotid ultrasound. Spectral harley sis of the Doppler waveforms were performed. FINDINGS: No significant plaque is visualized in either internal or common carotid artery. The Doppler waveform s are normal bilaterally. Peak systolic velocity in the right ICA is 64 cm/second. Peak systolic velocity in the right CCA is 1 01 cm/second. The right ICA/CCA ratio is 0.6. Peak systolic velocity in the left ICA is 61 cm/second. Peak systolic velocity in the left CCA is 94 cm/second. The left ICA/CCA ratio is 0.7. Both vertebral arteries demonstrate antegrade flow without focal stenosis. IMPRESSION: No evidence of hemodynamically significant stenosis. POS: EAA
--- NOTE | 2020-01-17 13:37 | MRI ---
MRI OF THE BRAIN WITHOUT CONTRAST: 01/17/20 COMPARISON: CT brain 01/16/20, MRI brain 12/20/19. HISTORY: Right sided weakness and slurred speech. Symptoms have subsequently resolved and patient is back to [facility]. TECHNIQUE: Multiplanar and multisequence MR images were obtained of the brain without contrast. FINDINGS: There are scattered foci of high T2/FLAIR signal in the subcortical and periventricular white matter, likely secondary to small vessel ischemic disease. No restricted diffusion is seen to suggest an acu te infarction. There is no evidence of hydrocephalus, intracranial hemorrhage, or extra-axial fluid collection. Ther e are small areas of susceptibility artifact scattered throughout the brain which can be seen with am yloidosis. No calcifications are seen in these locations on CT. The expected flow voids are present. The corpus callosum, pituitary, and craniocervical junction are unremarkable. There is mucosal thickening in the right maxillary sinus. The other visualized paranasal sinuses and mastoid air cells are well aerated. IMPRESSION: 1. No evidence of acute intracranial abnormality. 2. Small vessel ischemic disease. 3. Scattered areas of susceptibility artifact in the brain may be secondary to amyloidosis. POS: EAA
--- NOTE | 2020-01-17 14:19 | PDOC.HOSPP ---
- Subjective Subjective: his symptoms resolved. BP remains elevated. - Objective Vital Signs & Weight: Vital Signs (12 hours) Temp Pulse Resp BP Pulse Ox 01/17/20 11:42 97.9 F 83 16 169/106 H 99 01/17/20 07:45 98.1 F 77 16 161/100 H 96 01/17/20 03:57 97.6 F 83 18 155/96 H 95 Weight Weight 182 lb 12.8 oz I&O: 01/16/20 01/17/20 01/18/20 06:59 06:59 06:59 Intake Total 665 360 Output Total 825 Balance -160 360 Result Diagrams: 01/16/20 18:18 01/16/20 18:18 Additional Labs: Accuchecks 01/17/20 01/17/20 01/16/20 11:30 05:42 21:03 POC Glucose 207 H 265 H 342 H Radiology Reviewed by me: Yes EKG Reviewed by me: Yes Hospitalist ROS - Medication Medications: Active Medications Generic Name Dose Route Start Last Admin Trade Name Freq PRN Reason Stop Dose Admin Aspirin 325 mg 01/17/20 09:00 01/17/20 08:46 Aspirin 325 Mg Enteric Coated Tablet PO 325 mg DAILY JOSE Administration Atorvastatin Calcium 40 mg 01/16/20 21:00 01/16/20 21:21 Atorvastatin Calcium 40 Mg Tab PO 40 mg HS JOSE Administration Enoxaparin Sodium 40 mg 01/17/20 09:00 01/17/20 08:46 Enoxaparin Sodium 40 Mg/0.4 Ml Syringe SC 40 mg 0900 JOSE Administration Sodium Chloride 1,000 mls @ 75 mls/hr 01/16/20 19:30 01/16/20 21:21 Normal Saline 0.9% IV 1,000 mls .[id number] JOSE Administration Insulin Human Lispro 0 units 01/16/20 19:29 01/17/20 12:24 Humalog 300 Units/3 Ml Vial SC 4 unit .MODERATE SLIDING SC PRN Administration Moderate Correctional Scale Insulin Human Lispro 0 units 01/16/20 22:00 01/16/20 22:06 Humalog 300 Units/3 Ml Vial SC 4 unit .BEDTIME SLIDING SC PRN Administration BEDTIME SLIDING SCALE Protocol - Exam General Appearance: NAD Eye: PERRL ENT: normocephalic atraumatic Neck: supple Heart: RRR Respiratory: CTAB Gastrointestinal: soft Extremities: no cyanosis Neurological - other findings: right side weakness Psychiatric: normal affect, normal behavior Hosp A/P - Plan Stroke-like symptoms including facial droop, slurred speech - resolved --TIA vs hypertensive urgency --cont stroke workup, appreciate recommendations from neurology Hypertensive urgency --diastolic BP remains high >100 --resume Norvasc, add metoprolol --monitor and adjust at needed. DM2 --cont home meds, Lantus, ISS Hx of CVA
[2020-01-17] MEDS ORDERED: Amlodipine 10 MG TAB PO SCH (14:30)
[2020-01-17] MEDS ORDERED: Carvedilol 6.25 MG TAB ONE (16:16)
[2020-01-17 17:26] VITALS: TEMP 97.7
--- NOTE | 2020-01-17 17:26 | PDOC.DS.DS ---
Provider - Provider Date of Admission: 01/16/20 19:27 Date of Discharge: 01/17/20 Admitting Provider: Katina Olivo MD Consultations: Neurology Primary Care Physician: [facility] Course - Hospital Course Hospital Course: DISCHARGE DIAGNOSES: 1. TIA 2. Diabetes with hyperglycemia Hypertensive urgency 4. Dyslipidemia 5. History of CVA PERTINENT IMAGING STUDIES: MRI. No evidence of acute intracranial abnormality. Small vessel ischemic disease. 2D echo: Left ventricular size is normal, EF 40-45% Carotic Doppler: No evidence of hemodynamically significant stenosis Brain CT: Chronic findings. No acute intracranial abnormalities HISTORY OF PRESENT ILLNESS AND BRIEF HOSPITAL COURSE: The patient is a pleasant 54 years old gentleman who has significant past medical histories of CVA with mild residual right-sided deficit, presented to ED with strokelike symptom. His onset of symptoms around 4 PM, with slurred speech, facial droop. His symptoms appear to be resolved at the time of admission. He was found elevated blood pressure with diastolics in the 100s. He was subsequently admitted to hospitalist for further stroke work-up. His MRI was negative. Blood pressures improved. Apparently, patient had not been ta apryl his medication like he supposed to. Patient was counseled with regard to medical compliance. Patient was seen by neurology, recommend to increase his aspirin to full dose 325 mg daily, and also add statin to his regimen. 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 PROCEDURE PERFORMED: NONE DISCHARGE CONDITION: STABLE DISPOSITION: HOME PHYSICAL EXAM: General Appearance: Alert, oriented, resting comfortably, no apparent distress, well developed/nourished. HEENT: Normocephalic/atraumatic, moist mucous membrane, normal ENT inspection, normal tones. PERRLA, no scleral icterus, normal conjunctiva Neck: Supple, normal inspection, no JVD Respiratory: Lungs are clear bilaterally, normal breath sounds, no accessory muscle use Cardiovascular: Regular rate, regular rhythm, no murmur, no rubs Abdomen: Soft, nontender, nondistended, normal bowel sounds, no organomegaly, no guarding no rebound Back: Normal inspection, no CVA tenderness Extremities: No clubbing, no cyanosis, no edema Psych/Mental Status: Normal affect, speech, non-pressured, AAO x 3 Neurologic:residual mild right side weakness. Skin: Warm/Dry, Normal Color, no rashes DISCHARGE TIME SPENT: >30 MINUTES - Labs Lab Results: 01/16/20 18:18 01/16/20 18:18 Abnormal Lab Results - Last 48 hrs 01/17/20 04:55: Triglycerides 168 H - Physical Exam Vitals: Vital Signs (12 hours) Temp Pulse Resp BP BP Pulse Ox 01/17/20 15:51 97.7 F 93 16 172/102 H 94 L 01/17/20 14:53 179/116 H 01/17/20 11:42 97.9 F 83 16 169/106 H 99 01/17/20 07:45 98.1 F 77 16 161/100 H 96 Weight Weight 182 lb 12.8 oz Physical Exam: The patient was seen and examined on the day of discharge. Plan - Discharge Medications Prescriptions: Aspirin 325 mg PO DAILY #90 tab Atorvastatin Calcium [Lipitor] 40 mg PO HS #30 tab Home Medications: Medication Instructions Recorded Confirmed Type glipiZIDE [glipiZIDE XL] 10 mg PO BID 11/15/18 01/17/20 History Amlodipine [Norvasc] 10 mg PO DAILY 01/17/20 01/17/20 History Aspirin 325 mg PO DAILY #90 tab 01/17/20 Rx Atorvastatin Calcium [Lipitor] 40 mg PO HS #30 tab 01/17/20 Rx Levemir Flexpen [Levemir FlexPen] 25 units SQ BID 01/17/20 01/17/20 History metFORMIN HCl [Metformin HCl] 1,000 mg PO BID 01/17/20 01/17/20 History Allergies: lisinopril Adverse Reaction (Verified 01/16/20 21:20) makes cough really badly - Discharge Instructions Activity:: Activity as Tolerated - Follow up Plan Referrals: [facility] [Primary Care Provider] - 7 Days Disposition: HOME Quality - Care Measures CORE MEASURES:: Stroke/TIA - Stroke/TIA Did you prescribe antithrombotic therapy?: Yes Did you prescribe anticoagulant for A Fib/Flutter?: Yes Specify reason for no DC anticoagulant: Treatment not indicated Did you prescribe a statin medication?: Yes
[2020-01-17 17:33] VITALS: BP 167/90
[2020-01-17] MEDS: Sodium Chloride 0.9% 1,000 ML IV SCH (19:02)
[2020-01-17] MEDS ORDERED: Metoprolol Tartrate 25 MG TAB PO SCH (21:00)
[2020-01-17] MEDS ORDERED: Non-Formulary Item 1 EACH (Levemir Flexpen [Levemir Flexpen] 100 UNITS/ML Pen) SQ SCH (21:00)
[2020-01-17] MEDS ORDERED: Insulin Glargine 25 UNITS in Pre-Filled Syringe 1 EACH SC SCH (21:00)
[2020-01-18] MEDS ORDERED: Amlodipine 10 MG TAB PO SCH (09:00)
== END 2020-01-17 18:44 | disposition home or self-care (01) ==
LOC: ERS 17:32 → 2SE 19:27
PROVIDERS: ADMIT Internal Medicine; ATTEND Family Medicine
DX: G45.9 Transient cerebral ischemic attack, unspecified (principal); I16.0 Hypertensive urgency; E11.65 Type 2 diabetes mellitus with hyperglycemia; E78.5 Hyperlipidemia, unspecified; Z79.82 Long term (current) use of aspirin; Z79.84 Long term (current) use of oral hypoglycemic drugs; Z79.899 Other long term (current) drug therapy; Z88.8 Allergy status to other drugs, medicaments and biological substances; Z20.828 Contact with and (suspected) exposure to other viral communicable diseases
CPT/HCPCS: 36415; 36416; 70450; 70551; 80053; 80061; 83880; 84484; 85025; 87635; 93005; 93306; 93880; 94760; 96372; 96374; G0378; J1650; U0003

== ENCOUNTER 2020-04-15 17:26 | Inpatient (IN) | payer SELFPAY ==
[2020-04-15 18:18] LABS: #Lymphocytes 1.7 thou/uL (1.20-3.40); #Monocytes 1.1 thou/uL (0.11-0.59); #Neutrophils 10.7 thou/uL (1.40-6.50); %Basophils 0.2 % (0.0-1.0); %Eosinophils 0.3 % (0.0-10.0); %Lymphocytes 12.3 % (21.0-51.0); %Monocytes 7.9 % (0.0-10.0); %Neutrophils 79.2 % (42.0-75.0); Hemoglobin 15.2 g/dL (14.0-18.0); Mean Corpuscular HGB CONC 34.7 g/dL (32.0-36.0); Mean Corpuscular Hemoglobin 28.7 pg (27.0-31.0); Mean Corpuscular Volume 82.7 fL (78.0-98.0); Mean Platelet Volume 8.4 fL (7.4-10.4); Platelet Count 200 thou/uL (130-400); Red Blood Cell (RBC) Count 5.29 mill/uL (4.70-6.10); White Blood Cell (WBC) Count 13.5 thou/uL (4.8-10.8)
[2020-04-15 18:48] LABS: ALT (SGPT) 22 U/L (8-55); AST (SGOT) 20 U/L (5-34); Albumin 4.6 g/dL (3.5-5.0); Alkaline Phosphatase 102 U/L (40-110); Anion Gap 15 mmol/L (10-20); BUN (Urea Nitrogen) 21 mg/dL (8.4-25.7); Bilirubin, Total 1.4 mg/dL (0.2-1.2); CK (CPK) 240 U/L (30-200); Calc. Creatinine Clearance 0 mL/min (70-130); Calcium 9.4 mg/dL (7.8-10.44); Carbon Dioxide 27 mmol/L (22-29); Chloride 103 mmol/L (98-107); Globulin 3.2 g/dL (2.4-3.5); Glucose 146 mg/dL (70-105); Lipase 42 U/L (8-78); Potassium 3.9 mmol/L (3.5-5.1); Protein, Total 7.8 g/dL (6.0-8.3); Sodium 141 mmol/L (136-145)
[2020-04-15 19:03] LABS: Bacteria/HPF None Seen HPF (None Seen); Bilirubin Negative (Negative); Blood, Urine Negative (Negative); Clarity Clear (Clear); Glucose, Urine (Dipstick) 100 mg/dL (Negative); Ketone, Urine Negative (Negative); Leukocyte Negative Leu/uL (Negative); Nitrite Negative (Negative); Protein, Urine (Dipstick) 30 mg/dL (Neg-Trace); RBC/HPF 0-3 HPF (0-3); Specific Gravity, Urine 1.027 (1.002-1.036); Squamous Epithelial None Seen HPF (0-3); Urobilinogen Normal mg/dL (Less than 2); WBC/HPF 0-3 HPF (0-3)
[2020-04-15] MEDS ORDERED: Acetaminophen 500 MG TAB ONE (20:06)
[2020-04-15] MEDS ORDERED: Azithromycin 500 MG VIAL ONE (20:06)
[2020-04-15 20:07] LABS: SARS-CoV-2 NAA Rapid Test Not Detected (NotDetected)
[2020-04-15] MEDS ORDERED: cefTRIAXone\\ROCEPHIN 1 GM VIAL ONE (20:07)
[2020-04-15] MEDS ORDERED: Metoprolol Tartrate 5 MG/5 ML VIAL ONE (21:10)
[2020-04-15] MEDS ORDERED: Aspirin 325 MG TAB ONE (21:20)
[2020-04-15 22:00] LABS: CKMB 1.1 ng/mL (0-6.6)
[2020-04-15 22:18] LABS: Magnesium 1.6 mg/dL (1.6-2.6)
[2020-04-15 22:25] LABS: Phosphorus 1.1 mg/dL (2.3-4.7)
[2020-04-15] MEDS ORDERED: Ondansetron PF 4 MG/2 ML Vial IVP PRN (23:00)
[2020-04-15] MEDS ORDERED: Ondansetron ODT 4 MG TAB SL PRN (23:00)
[2020-04-15] MEDS ORDERED: Acetaminophen 325 MG TAB PO PRN (23:00)
[2020-04-15 23:07] VITALS: BMI 33.0
[2020-04-16] MEDS ORDERED: Sodium Phosphate 30 MMOL in Sodium Chloride 0.9% 250 ML 250 ML IVPB SCH (00:30)
[2020-04-16] MEDS ORDERED: Magnesium Sulfate 4 GM in Sodium Chloride 0.9% 250 ML 250 ML IVPB SCH (01:00)
[2020-04-16 01:04] LABS: Troponin I 0.034 ng/mL (< 0.028)
[2020-04-16] MEDS ORDERED: Acetaminophen 325 MG TAB PO PRN (02:32)
[2020-04-16] MEDS ORDERED: Ondansetron PF 4 MG/2 ML Vial IVP PRN (02:32)
[2020-04-16] MEDS ORDERED: Dextrose 50% Abboject 50 ML SYRINGE SLOW IVP PRN (02:36)
[2020-04-16] MEDS ORDERED: Dextrose 5% in Water 1,000 ML IV PRN (02:36)
[2020-04-16] MEDS ORDERED: hydrALAZINE 20 MG/ML VIAL SLOW IVP PRN (02:37)
[2020-04-16] MEDS: VANCOMYCIN 1.75 GM/350 ML BAG 1.75 GM in Premix Bag 1 BAG IVPB SCH (04:31)
[2020-04-16 05:17] LABS: #Lymphocytes 2.3 thou/uL (1.20-3.40); #Monocytes 1.8 thou/uL (0.11-0.59); #Neutrophils 14.4 thou/uL (1.40-6.50); %Basophils 0.1 % (0.0-1.0); %Eosinophils 0.2 % (0.0-10.0); %Lymphocytes 12.3 % (21.0-51.0); %Monocytes 9.6 % (0.0-10.0); %Neutrophils 77.9 % (42.0-75.0); Mean Corpuscular HGB CONC 34.6 g/dL (32.0-36.0); Mean Corpuscular Volume 83.8 fL (78.0-98.0); Mean Platelet Volume 8.6 fL (7.4-10.4); Platelet Count 165 thou/uL (130-400); Red Blood Cell (RBC) Count 4.47 mill/uL (4.70-6.10); White Blood Cell (WBC) Count 18.5 thou/uL (4.8-10.8)
[2020-04-16] MEDS: HumaLOG 300 UNITS/3 ML VIAL SC PRN (05:31)
[2020-04-16 05:32] LABS: Anion Gap 14 mmol/L (10-20); BUN (Urea Nitrogen) 18 mg/dL (8.4-25.7); Calc. Creatinine Clearance 101 mL/min (70-130); Calcium 8.1 mg/dL (7.8-10.44); Carbon Dioxide 22 mmol/L (22-29); Chloride 108 mmol/L (98-107); Glucose 262 mg/dL (70-105); Potassium 3.6 mmol/L (3.5-5.1); Sodium 140 mmol/L (136-145)
[2020-04-16 05:40] LABS: Phosphorus 3.5 mg/dL (2.3-4.7)
[2020-04-16] MEDS ORDERED: Non-Formulary Item 1 EACH (Levemir Flexpen [Levemir Flexpen] 100 UNITS/ML Pen) SQ SCH (09:00)
[2020-04-16] MEDS ORDERED: Aspirin 325 MG TAB PO SCH (09:00)
[2020-04-16] MEDS: Aspirin 325 mg Enteric Coated Tablet PO SCH (09:37)
[2020-04-16] MEDS: Insulin Glargine 25 UNITS in Pre-Filled Syringe 1 EACH SC SCH ×2 (09:38→20:09)
[2020-04-16] MEDS: Carvedilol 25 MG TAB PO SCH ×2 (09:38→20:00)
[2020-04-16] MEDS: Enoxaparin Sodium 40 MG/0.4 ML SYRINGE SC SCH (09:38)
[2020-04-16] MEDS: Cefepime 1 GM in Sodium Chloride 0.9% 100 ML IVPB SCH ×2 (09:39→20:00)
[2020-04-16] MEDS ORDERED: Atorvastatin Calcium 40 MG TAB PO SCH (21:00)
[2020-04-16] MEDS ORDERED: FLU VACC QS2020-21(6MOS UP)/PF 60 MCG/0.5 ML SYRINGE IM ONE (21:00)
[2020-04-17 05:14] LABS: #Eosinphils 0.2 thou/uL (0.0-0.7); #Lymphocytes 1.8 thou/uL (1.20-3.40); #Monocytes 0.7 thou/uL (0.11-0.59); #Neutrophils 4.4 thou/uL (1.40-6.50); %Basophils 0.3 % (0.0-1.0); %Eosinophils 2.7 % (0.0-10.0); %Monocytes 9.2 % (0.0-10.0); %Neutrophils 62.9 % (42.0-75.0); Hemoglobin 12.8 g/dL (14.0-18.0); Mean Corpuscular HGB CONC 33.5 g/dL (32.0-36.0); Mean Corpuscular Volume 83.5 fL (78.0-98.0); Mean Platelet Volume 8.3 fL (7.4-10.4); Platelet Count 157 thou/uL (130-400); RBC Distribution Width 11.8 % (11.5-14.5); Red Blood Cell (RBC) Count 4.56 mill/uL (4.70-6.10); White Blood Cell (WBC) Count 7.1 thou/uL (4.8-10.8)
[2020-04-17 05:29] LABS: Phosphorus 3.1 mg/dL (2.3-4.7)
[2020-04-17 05:37] LABS: Anion Gap 11 mmol/L (10-20); BUN (Urea Nitrogen) 14 mg/dL (8.4-25.7); Calc. Creatinine Clearance 123 mL/min (70-130); Calcium 8.5 mg/dL (7.8-10.44); Carbon Dioxide 25 mmol/L (22-29); Chloride 107 mmol/L (98-107); Glucose 149 mg/dL (70-105); Potassium 3.5 mmol/L (3.5-5.1); Sodium 139 mmol/L (136-145)
[2020-04-17] MEDS: VANCOMYCIN 1.75 GM/350 ML BAG 1.75 GM in Premix Bag 1 BAG IVPB SCH (05:37)
[2020-04-17] MEDS ORDERED: Azithromycin 250 MG TAB PO SCH (09:00)
[2020-04-17] MEDS: Carvedilol 25 MG TAB PO SCH (09:27)
[2020-04-17] MEDS: Aspirin 325 mg Enteric Coated Tablet PO SCH (09:27)
[2020-04-17] MEDS: Enoxaparin Sodium 40 MG/0.4 ML SYRINGE SC SCH (09:27)
[2020-04-17] MEDS: Insulin Glargine 25 UNITS in Pre-Filled Syringe 1 EACH SC SCH (09:27)
[2020-04-17 11:50] VITALS: BP 156/94; TEMP 97.5
[2020-04-17] MEDS: HumaLOG 300 UNITS/3 ML VIAL SC PRN (12:12)
[2020-04-18] MEDS ORDERED: Azithromycin 250 MG TAB PO SCH (09:00)
== END 2020-04-17 19:25 | disposition home or self-care (01) | DRG 872 ==
LOC: ERS 17:26 → 3SE 21:18 → OBSVTOIN 04-17 12:09
PROVIDERS: ADMIT Internal Medicine; ATTEND Emergency Medicine
DX: A41.9 Sepsis, unspecified organism (principal); I50.22 Chronic systolic (congestive) heart failure; N17.9 Acute kidney failure, unspecified; Z20.822 Contact with and (suspected) exposure to COVID-19; Z23 Encounter for immunization; I11.0 Hypertensive heart disease with heart failure; E78.5 Hyperlipidemia, unspecified; E11.9 Type 2 diabetes mellitus without complications; H91.93 Unspecified hearing loss, bilateral; E83.39 Other disorders of phosphorus metabolism; I25.10 Atherosclerotic heart disease of native coronary artery without angina pectoris; J06.9 Acute upper respiratory infection, unspecified; Z86.73 Personal history of transient ischemic attack (TIA), and cerebral infarction without residual deficits; Z90.49 Acquired absence of other specified parts of digestive tract; Z88.8 Allergy status to other drugs, medicaments and biological substances; Z98.890 Other specified postprocedural states; Z79.82 Long term (current) use of aspirin; Z79.84 Long term (current) use of oral hypoglycemic drugs; Z79.899 Other long term (current) drug therapy
CPT/HCPCS: 0240U; 36415; 36416; 71045; 71275; 80048; 80053; 81003; 81015; 82550; 82553; 83605; 83690; 83735; 83880; 84100; 84443; 84484; 85025; 87040; 87086; 93005; 93306; 96365; 96366; 96368; 96372; 96375; 96376; G0378; J0456; J0692; J0696; J1650; J1815; J3370; J3475; J3490; J7050; Q9967

== ENCOUNTER 2020-04-30 22:09 | Emergency (ER) | payer OTHER ==
[2020-04-30 22:38] LABS: #Eosinphils 0.1 thou/uL (0.0-0.7); #Lymphocytes 2.7 thou/uL (1.20-3.40); #Monocytes 0.6 thou/uL (0.11-0.59); #Neutrophils 4.1 thou/uL (1.40-6.50); %Basophils 0.5 % (0.0-1.0); %Lymphocytes 36.3 % (21.0-51.0); %Monocytes 7.9 % (0.0-10.0); %Neutrophils 54.3 % (42.0-75.0); Hemoglobin 14.4 g/dL (14.0-18.0); Mean Corpuscular HGB CONC 34.4 g/dL (32.0-36.0); Mean Corpuscular Hemoglobin 28.3 pg (27.0-31.0); Mean Corpuscular Volume 82.4 fL (78.0-98.0); Mean Platelet Volume 8.2 fL (7.4-10.4); Platelet Count 210 thou/uL (130-400); RBC Distribution Width 11.9 % (11.5-14.5); Red Blood Cell (RBC) Count 5.08 mill/uL (4.70-6.10); White Blood Cell (WBC) Count 7.5 thou/uL (4.8-10.8)
[2020-04-30 23:00] LABS: ALT (SGPT) 25 U/L (8-55); AST (SGOT) 19 U/L (5-34); Albumin 4.5 g/dL (3.5-5.0); Alkaline Phosphatase 103 U/L (40-110); Anion Gap 15 mmol/L (10-20); BUN (Urea Nitrogen) 20 mg/dL (8.4-25.7); Bilirubin, Total 0.8 mg/dL (0.2-1.2); Calc. Creatinine Clearance 0 mL/min (70-130); Calcium 9.2 mg/dL (7.8-10.44); Carbon Dioxide 24 mmol/L (22-29); Chloride 103 mmol/L (98-107); Globulin 3.2 g/dL (2.4-3.5); Glucose 412 mg/dL (70-105); Lipase 55 U/L (8-78); Potassium 3.8 mmol/L (3.5-5.1); Protein, Total 7.7 g/dL (6.0-8.3); Sodium 138 mmol/L (136-145)
[2020-04-30] MEDS ORDERED: Aspirin Chewable 81 MG TAB ONE (23:01)
[2020-05-01 01:23] LABS: Troponin I 0.024 ng/mL (< 0.028)
== END 2020-05-01 01:58 | disposition home or self-care (01) ==
LOC: ERS 22:09
DX: R07.9 Chest pain, unspecified (principal); E11.9 Type 2 diabetes mellitus without complications; I10 Essential (primary) hypertension; Z86.73 Personal history of transient ischemic attack (TIA), and cerebral infarction without residual deficits
CPT/HCPCS: 36415; 71045; 80053; 83690; 84484; 85025; 93005; 94760

== ENCOUNTER 2020-05-14 13:46 | Emergency (ER) | payer OTHER ==
[2020-05-14] MEDS ORDERED: Aspirin Chewable 81 MG TAB ONE (14:23)
[2020-05-14] MEDS ORDERED: Nitroglycerin 0.4 MG TAB 1 EACH ONE (14:23)
[2020-05-14 14:26] LABS: #Eosinphils 0.1 thou/uL (0.0-0.7); #Lymphocytes 2.3 thou/uL (1.20-3.40); #Monocytes 0.5 thou/uL (0.11-0.59); #Neutrophils 4.6 thou/uL (1.40-6.50); %Lymphocytes 31.1 % (21.0-51.0); %Monocytes 7.1 % (0.0-10.0); %Neutrophils 60.8 % (42.0-75.0); Hemoglobin 14.5 g/dL (14.0-18.0); Mean Corpuscular HGB CONC 34.2 g/dL (32.0-36.0); Mean Corpuscular Hemoglobin 27.9 pg (27.0-31.0); Mean Corpuscular Volume 81.4 fL (78.0-98.0); Mean Platelet Volume 8.6 fL (7.4-10.4); Platelet Count 182 thou/uL (130-400); RBC Distribution Width 11.6 % (11.5-14.5); Red Blood Cell (RBC) Count 5.19 mill/uL (4.70-6.10); White Blood Cell (WBC) Count 7.5 thou/uL (4.8-10.8)
[2020-05-14 14:55] LABS: ALT (SGPT) 26 U/L (8-55); AST (SGOT) 18 U/L (5-34); Albumin 4.4 g/dL (3.5-5.0); Alkaline Phosphatase 128 U/L (40-110); Anion Gap 17 mmol/L (10-20); BUN (Urea Nitrogen) 16 mg/dL (8.4-25.7); CK (CPK) 192 U/L (30-200); Calc. Creatinine Clearance 0 mL/min (70-130); Calcium 8.9 mg/dL (7.8-10.44); Carbon Dioxide 24 mmol/L (22-29); Chloride 99 mmol/L (98-107); Globulin 3.1 g/dL (2.4-3.5); Glucose 494 mg/dL (70-105); Potassium 3.7 mmol/L (3.5-5.1); Protein, Total 7.5 g/dL (6.0-8.3); Sodium 136 mmol/L (136-145)
[2020-05-14 16:18] LABS: Bilirubin Negative (Negative); Blood, Urine Negative (Negative); Clarity Clear (Clear); Glucose, Urine (Dipstick) Greater than 1000 mg/dL (Negative); Ketone, Urine Negative (Negative); Leukocyte Negative Leu/uL (Negative); Nitrite Negative (Negative); Protein, Urine (Dipstick) Negative (Neg-Trace); Specific Gravity, Urine 1.035 (1.002-1.036); Urobilinogen Normal mg/dL (Less than 2)
== END 2020-05-14 16:50 | disposition left against medical advice (07) ==
LOC: ERS 13:46
DX: E11.65 Type 2 diabetes mellitus with hyperglycemia (principal); R06.00 Dyspnea, unspecified; I10 Essential (primary) hypertension; Z86.73 Personal history of transient ischemic attack (TIA), and cerebral infarction without residual deficits; Z79.4 Long term (current) use of insulin
CPT/HCPCS: 80053; 81003; 82550; 83880; 84484; 85025; 93005

== ENCOUNTER 2020-05-14 18:46 | Emergency (ER) | payer OTHER ==
[2020-05-14] MEDS ORDERED: Ketorolac Tromethamine 30 MG/ML VIAL ONE (20:15)
[2020-05-14 20:31] LABS: #Eosinphils 0.1 thou/uL (0.0-0.7); #Lymphocytes 2.1 thou/uL (1.20-3.40); #Monocytes 0.6 thou/uL (0.11-0.59); %Eosinophils 1.1 % (0.0-10.0); %Lymphocytes 30.7 % (21.0-51.0); %Monocytes 8.7 % (0.0-10.0); %Neutrophils 59.5 % (42.0-75.0); Hemoglobin 14.6 g/dL (14.0-18.0); Mean Corpuscular HGB CONC 34.4 g/dL (32.0-36.0); Mean Corpuscular Hemoglobin 28.2 pg (27.0-31.0); Mean Platelet Volume 8.5 fL (7.4-10.4); Platelet Count 175 thou/uL (130-400); RBC Distribution Width 11.6 % (11.5-14.5); Red Blood Cell (RBC) Count 5.18 mill/uL (4.70-6.10); White Blood Cell (WBC) Count 6.7 thou/uL (4.8-10.8)
[2020-05-14 20:59] LABS: ALT (SGPT) 24 U/L (8-55); AST (SGOT) 18 U/L (5-34); Albumin 4.4 g/dL (3.5-5.0); Alkaline Phosphatase 113 U/L (40-110); Anion Gap 15 mmol/L (10-20); BUN (Urea Nitrogen) 14 mg/dL (8.4-25.7); Calc. Creatinine Clearance 0 mL/min (70-130); Calcium 8.8 mg/dL (7.8-10.44); Carbon Dioxide 25 mmol/L (22-29); Chloride 103 mmol/L (98-107); Globulin 3.1 g/dL (2.4-3.5); Glucose 295 mg/dL (70-105); Potassium 3.5 mmol/L (3.5-5.1); Protein, Total 7.5 g/dL (6.0-8.3); Sodium 139 mmol/L (136-145)
== END 2020-05-14 21:48 | disposition home or self-care (01) ==
LOC: ERS 18:46
DX: I10 Essential (primary) hypertension (principal); F41.9 Anxiety disorder, unspecified; R06.00 Dyspnea, unspecified; R07.89 Other chest pain; E11.9 Type 2 diabetes mellitus without complications; Z79.4 Long term (current) use of insulin; Z86.73 Personal history of transient ischemic attack (TIA), and cerebral infarction without residual deficits; Z79.899 Other long term (current) drug therapy
CPT/HCPCS: 70450; 71045; 93005; 96374; J1885

== ENCOUNTER 2022-11-17 14:19 | Inpatient (IN) | payer MEDICARE, OTHER, SELFPAY ==
[2022-11-17] MEDS ORDERED: Morphine 4 MG/ML VIAL ONE (15:05)
[2022-11-17] MEDS ORDERED: Ondansetron PF 4 MG/2 ML Vial ONE (15:05)
[2022-11-17] MEDS ORDERED: Morphine 2 MG/ML VIAL ONE (15:05)
[2022-11-17 15:21] LABS: #Eosinphils 0.1 thou/uL (0.0-0.7); #Monocytes 1.2 thou/uL (0.11-0.59); #Neutrophils 4.7 thou/uL (1.40-6.50); %Basophils 0.1 % (0.0-1.0); %Lymphocytes 23.7 % (21.0-51.0); %Monocytes 15.1 % (0.0-10.0); %Neutrophils 59.8 % (42.0-75.0); Hematocrit 38.5 % (42.0-52.0); Hemoglobin 12.3 g/dL (14.0-18.0); Mean Corpuscular HGB CONC 31.9 g/dL (32.0-36.0); Mean Corpuscular Hemoglobin 26.2 pg (27.0-31.0); Mean Corpuscular Volume 81.9 fl (78.0-98.0); Mean Platelet Volume 10.1 fL (7.4-10.4); Platelet Count 261 10x3/uL (130-400); RBC Distribution Width 14.3 % (11.5-14.5); White Blood Cell (WBC) Count 7.9 10x3/uL (4.8-10.8)
[2022-11-17 15:43] LABS: Bacteria/HPF None Seen HPF (None Seen); Bilirubin Negative (Negative); Blood, Urine Negative (Negative); CAUTI Indications for Culture Pelvic or flank pain; Clarity Clear (Clear); Glucose, Urine (Dipstick) Greater than 1000 mg/dL (Negative); Ketone, Urine Negative (Negative); Leukocyte Negative Leu/uL (Negative); Nitrite Negative (Negative); Protein, Urine (Dipstick) Negative (Neg-Trace); RBC/HPF None Seen HPF (0-3); Specific Gravity, Urine 1.017 (1.002-1.036); Squamous Epithelial None Seen HPF (0-3); Urobilinogen Normal mg/dL (Less than 2); WBC/HPF None Seen HPF (0-3); pH, Urine 5.5 (5.0-9.0)
[2022-11-17 15:43] LABS: ALT (SGPT) 28 U/L (8-55); AST (SGOT) 31 U/L (5-34); Albumin 4.4 g/dL (3.5-5.0); Alkaline Phosphatase 100 U/L (40-110); Anion Gap 14 mmol/L (10-20); BUN (Urea Nitrogen) 32 mg/dL (8.4-25.7); Bilirubin, Total 0.5 mg/dL (0.2-1.2); Calc. Creatinine Clearance 0 mL/min (70-130); Calcium 9.5 mg/dL (7.8-10.44); Carbon Dioxide 28 mmol/L (22-29); Chloride 105 mmol/L (98-107); Estimated GFR 52; Globulin 3.2 g/dL (2.4-3.5); Glucose 91 mg/dL (70-105); Potassium 4.2 mmol/L (3.5-5.1); Protein, Total 7.6 g/dL (6.0-8.3); Sodium 143 mmol/L (136-145)
[2022-11-17 15:57] LABS: Urine Culture Reflex No No
[2022-11-17] MEDS ORDERED: Piperacillin/Tazobactam 4.5 GM VIAL ONE (17:35)
[2022-11-17] MEDS ORDERED: VANCOMYCIN 2 GRAM/500 ML BAG 2 GM in Premix Bag 1 BAG IVPB SCH (18:00)
[2022-11-17] MEDS ORDERED: Ondansetron ODT 4 MG TAB PO PRN (18:05)
[2022-11-17] MEDS ORDERED: Dextrose 50% Abboject 50 ML SYRINGE SLOW IVP PRN (18:05)
[2022-11-17] MEDS ORDERED: Calcium Carbonate 500 MG ChewTAB PO PRN (18:05)
[2022-11-17] MEDS ORDERED: HumaLOG 300 UNITS/3 ML VIAL SC PRN ×2 (18:05)
[2022-11-17] MEDS ORDERED: VANCOMYCIN - SSTI IVPB PRN (18:05)
[2022-11-17] MEDS ORDERED: Dextrose 5% in Water 1,000 ML IV PRN (18:05)
[2022-11-17] MEDS ORDERED: Acetaminophen 325 MG TAB PO PRN (18:05)
[2022-11-17] MEDS ORDERED: Ondansetron PF 4 MG/2 ML Vial IVP PRN (18:05)
[2022-11-17] MEDS ORDERED: Glucagon 1 MG/ML KIT IM PRN (18:05)
[2022-11-17 19:20] VITALS: BMI 35.0
[2022-11-17] MEDS: Heparin 5,000 UNITS/ML VIAL SC SCH (19:51)
[2022-11-18] MEDS: Cefepime 1 GM in Sodium Chloride 0.9% 100 ML IVPB SCH ×2 (00:10→13:50)
[2022-11-18] MEDS: HYDROcodone/Acetaminophen 5/325 mg Tablet PO PRN ×3 (00:23→15:53)
[2022-11-18 06:28] LABS: #Eosinphils 0.1 thou/uL (0.0-0.7); #Monocytes 1.2 thou/uL (0.11-0.59); #Neutrophils 4.6 thou/uL (1.40-6.50); %Basophils 0.3 % (0.0-1.0); %Eosinophils 1.2 % (0.0-10.0); %Lymphocytes 21.7 % (21.0-51.0); %Monocytes 16.1 % (0.0-10.0); %Neutrophils 60.3 % (42.0-75.0); Hematocrit 37.1 % (42.0-52.0); Hemoglobin 11.5 g/dL (14.0-18.0); Mean Corpuscular Hemoglobin 25.6 pg (27.0-31.0); Mean Corpuscular Volume 82.6 fl (78.0-98.0); Mean Platelet Volume 9.9 fL (7.4-10.4); Platelet Count 221 10x3/uL (130-400); RBC Distribution Width 14.3 % (11.5-14.5); Red Blood Cell (RBC) Count 4.49 mill/uL (4.70-6.10); White Blood Cell (WBC) Count 7.7 10x3/uL (4.8-10.8)
[2022-11-18 06:56] LABS: Anion Gap 10 mmol/L (10-20); BUN (Urea Nitrogen) 26 mg/dL (8.4-25.7); Calc. Creatinine Clearance 77 mL/min (70-130); Calcium 8.9 mg/dL (7.8-10.44); Carbon Dioxide 29 mmol/L (22-29); Chloride 106 mmol/L (98-107); Estimated GFR 59; Glucose 70 mg/dL (70-105); Potassium 3.9 mmol/L (3.5-5.1); Sodium 141 mmol/L (136-145)
[2022-11-18] MEDS: Heparin 5,000 UNITS/ML VIAL SC SCH ×3 (10:17→20:32)
[2022-11-18] MEDS: Carvedilol 25 MG TAB PO SCH (20:21)
[2022-11-18] MEDS: Gabapentin 300 MG CAP PO SCH (20:21)
[2022-11-18] MEDS: Vancomycin 1.5 GRAM/300 ML BAG 1.5 GM in Premix Bag 1 BAG IVPB SCH (20:22)
[2022-11-18] MEDS ORDERED: Atorvastatin Calcium 40 MG TAB PO SCH (21:00)
[2022-11-18] MEDS: Morphine 2 MG/ML VIAL SLOW IVP PRN (21:19)
[2022-11-19] MEDS: Cefepime 1 GM in Sodium Chloride 0.9% 100 ML IVPB SCH (00:53)
[2022-11-19] MEDS: Morphine 2 MG/ML VIAL SLOW IVP PRN (06:08)
[2022-11-19 06:35] LABS: #Eosinphils 0.1 thou/uL (0.0-0.7); #Monocytes 1.4 thou/uL (0.11-0.59); #Neutrophils 5.5 thou/uL (1.40-6.50); %Basophils 0.2 % (0.0-1.0); %Eosinophils 1.5 % (0.0-10.0); %Monocytes 16.1 % (0.0-10.0); Hematocrit 35.9 % (42.0-52.0); Hemoglobin 11.3 g/dL (14.0-18.0); Mean Corpuscular HGB CONC 31.5 g/dL (32.0-36.0); Mean Corpuscular Hemoglobin 26.1 pg (27.0-31.0); Mean Corpuscular Volume 82.9 fl (78.0-98.0); Mean Platelet Volume 9.4 fL (7.4-10.4); Platelet Count 214 10x3/uL (130-400); RBC Distribution Width 14.3 % (11.5-14.5); Red Blood Cell (RBC) Count 4.33 mill/uL (4.70-6.10); White Blood Cell (WBC) Count 8.8 10x3/uL (4.8-10.8)
[2022-11-19 07:01] LABS: Anion Gap 13 mmol/L (10-20); BUN (Urea Nitrogen) 18 mg/dL (8.4-25.7); Calc. Creatinine Clearance 94 mL/min (70-130); Calcium 8.6 mg/dL (7.8-10.44); Carbon Dioxide 24 mmol/L (22-29); Chloride 106 mmol/L (98-107); Estimated GFR 75; Glucose 116 mg/dL (70-105); Potassium 4.4 mmol/L (3.5-5.1); Sodium 139 mmol/L (136-145)
[2022-11-19 07:04] LABS: Troponin I 0.015 ng/mL (< 0.028)
[2022-11-19] MEDS: Heparin 5,000 UNITS/ML VIAL SC SCH ×2 (10:25→13:58)
[2022-11-19] MEDS: Gabapentin 300 MG CAP PO SCH ×2 (10:25→21:18)
[2022-11-19] MEDS: HYDROcodone/Acetaminophen 5/325 mg Tablet PO PRN ×2 (10:25→13:59)
[2022-11-19] MEDS: Carvedilol 25 MG TAB PO SCH (10:26)
[2022-11-19] MEDS: Cefepime 2 GM in Sodium Chloride 0.9% 100 ML IVPB SCH (13:58)
[2022-11-19 19:55] LABS: Vancomycin, Trough 6.2 ug/mL
[2022-11-19] MEDS ORDERED: Atorvastatin Calcium 40 MG TAB PO SCH (21:00)
[2022-11-19] MEDS ORDERED: Mirtazapine 15 MG TAB PO SCH (21:00)
[2022-11-19] MEDS: Carvedilol 6.25 MG TAB PO SCH (21:18)
[2022-11-19] MEDS: Apixaban 5 MG TAB PO SCH (21:19)
[2022-11-19] MEDS: Losartan 25 MG TAB PO SCH (21:19)
[2022-11-19] MEDS: VANCOMYCIN 1.25 GM/250 ML BAG 1.25 GM in Premix Bag 1 BAG IVPB SCH (21:27)
[2022-11-20] MEDS: Cefepime 2 GM in Sodium Chloride 0.9% 100 ML IVPB SCH ×2 (01:16→12:13)
[2022-11-20 05:43] LABS: #Eosinphils 0.2 thou/uL (0.0-0.7); #Monocytes 1.2 thou/uL (0.11-0.59); #Neutrophils 4.3 thou/uL (1.40-6.50); %Basophils 0.3 % (0.0-1.0); %Eosinophils 2.4 % (0.0-10.0); %Lymphocytes 24.7 % (21.0-51.0); %Monocytes 16.2 % (0.0-10.0); %Neutrophils 56.1 % (42.0-75.0); Hematocrit 35.7 % (42.0-52.0); Hemoglobin 11.2 g/dL (14.0-18.0); Mean Corpuscular HGB CONC 31.4 g/dL (32.0-36.0); Mean Corpuscular Hemoglobin 26.4 pg (27.0-31.0); Mean Platelet Volume 9.9 fL (7.4-10.4); Platelet Count 229 10x3/uL (130-400); RBC Distribution Width 14.5 % (11.5-14.5); Red Blood Cell (RBC) Count 4.25 mill/uL (4.70-6.10); White Blood Cell (WBC) Count 7.6 10x3/uL (4.8-10.8)
[2022-11-20 06:04] LABS: Anion Gap 12 mmol/L (10-20); BUN (Urea Nitrogen) 18 mg/dL (8.4-25.7); Calc. Creatinine Clearance 89 mL/min (70-130); Carbon Dioxide 29 mmol/L (22-29); Chloride 105 mmol/L (98-107); Estimated GFR 71; Glucose 116 mg/dL (70-105); Potassium 4.6 mmol/L (3.5-5.1); Sodium 141 mmol/L (136-145)
[2022-11-20] MEDS: Vancomycin 1.5 GRAM/300 ML BAG 1.5 GM in Premix Bag 1 BAG IVPB SCH (07:09)
[2022-11-20] MEDS ORDERED: glipiZIDE XL 5 mg ER.TAB PO SCH (08:00)
[2022-11-20] MEDS: Losartan 25 MG TAB PO SCH (08:11)
[2022-11-20] MEDS: Gabapentin 300 MG CAP PO SCH (08:11)
[2022-11-20] MEDS: Carvedilol 6.25 MG TAB PO SCH (08:11)
[2022-11-20] MEDS: Apixaban 5 MG TAB PO SCH (08:11)
[2022-11-20 08:25] VITALS: BP 142/74; TEMP 97.7
[2022-11-20] MEDS: VANCOMYCIN 1.25 GM/250 ML BAG 1.25 GM in Premix Bag 1 BAG IVPB SCH (08:43)
[2022-11-20] MEDS ORDERED: Divalproex Sodium DR 500 MG TAB PO SCH (09:00)
[2022-11-20] MEDS ORDERED: FLU VACC QS2023-24(6MOS UP)/PF 60 MCG/0.5 ML SYRINGE IM ONE (09:00)
[2022-11-20] MEDS ORDERED: Escitalopram Oxalate 10 mg Tablet PO SCH (09:00)
[2022-11-20] MEDS ORDERED: Empagliflozin 10 MG TAB PO SCH (09:00)
[2022-11-20] MEDS ORDERED: Furosemide 40 MG TAB PO SCH (09:00)
[2022-11-20] MEDS: HYDROcodone/Acetaminophen 5/325 mg Tablet PO PRN ×2 (09:43→12:13)
[2022-11-20] MEDS ORDERED: Cefdinir 300 MG CAP PO SCH (21:00)
== END 2022-11-20 13:42 | disposition home health service (06) | DRG 638 ==
LOC: ERS 14:19 → T4-B 17:52
PROVIDERS: ADMIT Family Medicine; ATTEND Student in an Organized Health Care Education/Training Program
DX: E11.621 Type 2 diabetes mellitus with foot ulcer (principal); I50.22 Chronic systolic (congestive) heart failure; L97.219 Non-pressure chronic ulcer of right calf with unspecified severity; I11.0 Hypertensive heart disease with heart failure; E11.40 Type 2 diabetes mellitus with diabetic neuropathy, unspecified; N17.9 Acute kidney failure, unspecified; Z88.8 Allergy status to other drugs, medicaments and biological substances; Z79.82 Long term (current) use of aspirin; Z86.73 Personal history of transient ischemic attack (TIA), and cerebral infarction without residual deficits; Z79.84 Long term (current) use of oral hypoglycemic drugs; Z79.899 Other long term (current) drug therapy; Z90.49 Acquired absence of other specified parts of digestive tract; Z98.890 Other specified postprocedural states
CPT/HCPCS: 36415; 36416; 80048; 80053; 80202; 81001; 83605; 84484; 85025; 86140; 87040; 90471; 90686; 93005; 93010; 93923; 96365; 96375; 97139; G0008; J0692; J1644; J1815; J2270; J2272; J2405; J2543; J3370; J3490; Q0162

== ENCOUNTER 2022-12-03 21:11 | Emergency (ER) | payer MEDICARE, OTHER ==
[2022-12-03 22:15] LABS: #Eosinphils 0.2 thou/uL (0.0-0.7); #Monocytes 1.1 thou/uL (0.11-0.59); #Neutrophils 4.6 thou/uL (1.40-6.50); %Basophils 0.2 % (0.0-1.0); %Eosinophils 2.3 % (0.0-10.0); %Lymphocytes 27.1 % (21.0-51.0); %Monocytes 13.3 % (0.0-10.0); %Neutrophils 56.9 % (42.0-75.0); Hematocrit 38.3 % (42.0-52.0); Hemoglobin 12.2 g/dL (14.0-18.0); Mean Corpuscular HGB CONC 31.9 g/dL (32.0-36.0); Mean Corpuscular Hemoglobin 25.9 pg (27.0-31.0); Mean Corpuscular Volume 81.3 fl (78.0-98.0); Mean Platelet Volume 10.3 fL (7.4-10.4); Platelet Count 255 10x3/uL (130-400); RBC Distribution Width 14.2 % (11.5-14.5); Red Blood Cell (RBC) Count 4.71 mill/uL (4.70-6.10); White Blood Cell (WBC) Count 8.1 10x3/uL (4.8-10.8)
[2022-12-03 22:39] LABS: ALT (SGPT) 24 U/L (8-55); AST (SGOT) 21 U/L (5-34); Albumin 4.3 g/dL (3.5-5.0); Alkaline Phosphatase 87 U/L (40-110); Anion Gap 13 mmol/L (10-20); BUN (Urea Nitrogen) 27 mg/dL (8.4-25.7); Bilirubin, Total 0.3 mg/dL (0.2-1.2); Calc. Creatinine Clearance 0 mL/min (70-130); Calcium 9.4 mg/dL (7.8-10.44); Carbon Dioxide 27 mmol/L (22-29); Chloride 104 mmol/L (98-107); Estimated GFR 53; Globulin 2.9 g/dL (2.4-3.5); Glucose 67 mg/dL (70-105); Protein, Total 7.2 g/dL (6.0-8.3); Sodium 140 mmol/L (136-145)
[2022-12-03] MEDS ORDERED: Morphine 4 MG/ML VIAL ONE (22:43)
[2022-12-03] MEDS ORDERED: Ondansetron PF 4 MG/2 ML Vial ONE (22:43)
[2022-12-03] MEDS ORDERED: Vancomycin (BATCH) 1.5 GM in Premix 1 BAG IVPB SCH (22:45)
[2022-12-03] MEDS ORDERED: Cefepime 2 GM VIAL ONE (22:58)
== END 2022-12-04 00:31 | disposition home or self-care (01) ==
LOC: ERS 21:11
DX: E11.622 Type 2 diabetes mellitus with other skin ulcer (principal); L97.229 Non-pressure chronic ulcer of left calf with unspecified severity; L97.219 Non-pressure chronic ulcer of right calf with unspecified severity; I10 Essential (primary) hypertension; Z86.73 Personal history of transient ischemic attack (TIA), and cerebral infarction without residual deficits; Z79.4 Long term (current) use of insulin; Z79.84 Long term (current) use of oral hypoglycemic drugs; Z79.899 Other long term (current) drug therapy
CPT/HCPCS: 36415; 80053; 83605; 85025; 87040; 96365; 96375; J0692; J2270; J2405; J3370

== ENCOUNTER 2023-01-13 03:40 | Emergency (ER) | payer MEDICARE, OTHER ==
[2023-01-13] MEDS ORDERED: Cefepime 2 GM VIAL ONE (04:12)
[2023-01-13] MEDS ORDERED: Morphine 4 MG/ML VIAL ONE (04:12)
[2023-01-13 04:13] LABS: #Eosinphils 0.1 thou/uL (0.0-0.7); #Monocytes 1.1 thou/uL (0.11-0.59); #Neutrophils 5.2 thou/uL (1.40-6.50); %Basophils 0.1 % (0.0-1.0); %Lymphocytes 19.3 % (21.0-51.0); %Monocytes 13.4 % (0.0-10.0); %Neutrophils 65.9 % (42.0-75.0); Hematocrit 36.4 % (42.0-52.0); Hemoglobin 11.6 g/dL (14.0-18.0); Mean Corpuscular HGB CONC 31.9 g/dL (32.0-36.0); Mean Corpuscular Hemoglobin 25.4 pg (27.0-31.0); Mean Corpuscular Volume 79.6 fl (78.0-98.0); Platelet Count 242 10x3/uL (130-400); RBC Distribution Width 14.7 % (11.5-14.5); Red Blood Cell (RBC) Count 4.57 mill/uL (4.70-6.10); White Blood Cell (WBC) Count 7.8 10x3/uL (4.8-10.8)
[2023-01-13] MEDS ORDERED: Sodium Chloride 0.9% 100 ML ONE (04:13)
[2023-01-13 04:41] LABS: Magnesium 1.8 mg/dL (1.6-2.6)
[2023-01-13] MEDS ORDERED: Vancomycin (BATCH) 2 GM in Premix 1 BAG IVPB SCH (05:00)
[2023-01-13 05:02] LABS: ALT (SGPT) 29 U/L (8-55); AST (SGOT) 30 U/L (5-34); Albumin 3.5 g/dL (3.5-5.0); Alkaline Phosphatase 90 U/L (40-110); Anion Gap 14 mmol/L (10-20); BUN (Urea Nitrogen) 24 mg/dL (8.4-25.7); Bilirubin, Total 0.5 mg/dL (0.2-1.2); Calc. Creatinine Clearance 0 mL/min (70-130); Calcium 8.8 mg/dL (7.8-10.44); Carbon Dioxide 23 mmol/L (22-29); Chloride 109 mmol/L (98-107); Estimated GFR 70; Globulin 3.6 g/dL (2.4-3.5); Glucose 146 mg/dL (70-105); Protein, Total 7.1 g/dL (6.0-8.3); Sodium 141 mmol/L (136-145)
[2023-01-13] MEDS ORDERED: HYDROcodone/Acetaminophen 10/325 mg Tablet ONE (05:05)
[2023-01-13 05:51] LABS: Bacteria/HPF None Seen HPF (None Seen); Bilirubin Negative (Negative); Blood, Urine Negative (Negative); CAUTI Indications for Culture Dysuria,urgency,freq; Clarity Clear (Clear); Glucose, Urine (Dipstick) Greater than 1000 mg/dL (Negative); Ketone, Urine Negative (Negative); Leukocyte Negative Leu/uL (Negative); Nitrite Negative (Negative); Protein, Urine (Dipstick) Negative (Neg-Trace); RBC/HPF None Seen HPF (0-3); Specific Gravity, Urine 1.025 (1.002-1.036); Squamous Epithelial None Seen HPF (0-3); Urobilinogen Normal mg/dL (Less than 2); WBC/HPF None Seen HPF (0-3)
[2023-01-13 05:56] LABS: Urine Culture Reflex No No
[2023-01-13] MEDS ORDERED: Iopamidol 370 76% 100 ML VIAL ONE (10:06)
== END 2023-01-13 07:45 | disposition home or self-care (01) ==
LOC: ERS 03:40
DX: L03.115 Cellulitis of right lower limb (principal); E11.9 Type 2 diabetes mellitus without complications; I10 Essential (primary) hypertension; Z79.4 Long term (current) use of insulin; Z79.84 Long term (current) use of oral hypoglycemic drugs; Z79.899 Other long term (current) drug therapy
CPT/HCPCS: 36415; 71045; 71275; 80053; 81001; 83605; 83735; 85025; 86140; 87040; 93005; 94760; 96365; 96375; J0692; J2270; J3370; J3490; Q9967

== ENCOUNTER 2023-03-14 13:45 | Emergency (ER) | payer MEDICARE ==
[2023-03-14 14:29] LABS: #Eosinphils 0.1 thou/uL (0.0-0.7); #Monocytes 0.8 thou/uL (0.11-0.59); #Neutrophils 4.8 thou/uL (1.40-6.50); %Basophils 0.1 % (0.0-1.0); %Lymphocytes 26.1 % (21.0-51.0); %Monocytes 10.6 % (0.0-10.0); %Neutrophils 61.9 % (42.0-75.0); Hematocrit 34.3 % (42.0-52.0); Hemoglobin 10.7 g/dL (14.0-18.0); Mean Corpuscular HGB CONC 31.2 g/dL (32.0-36.0); Mean Corpuscular Hemoglobin 24.8 pg (27.0-31.0); Mean Corpuscular Volume 79.6 fl (78.0-98.0); Mean Platelet Volume 9.7 fL (7.4-10.4); Platelet Count 289 10x3/uL (130-400); RBC Distribution Width 15.4 % (11.5-14.5); Red Blood Cell (RBC) Count 4.31 mill/uL (4.70-6.10); White Blood Cell (WBC) Count 7.7 10x3/uL (4.8-10.8)
[2023-03-14 14:50] LABS: Anion Gap 13 mmol/L (10-20); BUN (Urea Nitrogen) 16 mg/dL (8.4-25.7); Calc. Creatinine Clearance 0 mL/min (70-130); Calcium 8.8 mg/dL (7.8-10.44); Carbon Dioxide 26 mmol/L (22-29); Chloride 105 mmol/L (98-107); Estimated GFR 67; Glucose 97 mg/dL (70-105); Potassium 4.2 mmol/L (3.5-5.1); Sodium 140 mmol/L (136-145)
[2023-03-14] MEDS ORDERED: HYDROcodone/Acetaminophen 5/325 mg Tablet ONE (14:52)
== END 2023-03-14 16:16 | disposition home or self-care (01) ==
LOC: ERS 13:45
DX: E11.621 Type 2 diabetes mellitus with foot ulcer (principal); L97.519 Non-pressure chronic ulcer of other part of right foot with unspecified severity; I10 Essential (primary) hypertension; Z86.73 Personal history of transient ischemic attack (TIA), and cerebral infarction without residual deficits
CPT/HCPCS: 36415; 80048; 83605; 85025; 99283